=== PATIENT | female | born 1950 | race Caucasian/White ===

== ENCOUNTER 2018-04-26 19:04 | Outpatient (REF) | payer MEDICARE, SELFPAY | END 2018-04-26 19:24 | LOC: LBN 19:04 | PROVIDERS: PCP Nurse Practitioner; Visit Provider Nurse Practitioner Adult Health | DX: J02.9 Acute pharyngitis, unspecified (principal) | CPT/HCPCS: 87449; 87070 ==

== ENCOUNTER 2018-08-05 14:54 | Outpatient (CLI) | payer MEDICARE, BC, SELFPAY ==
--- NOTE | 2018-08-05 14:45 | DI.RAD_ITS ---
SYMPTOMS/DIAGNOSIS: LEFT KNEE PAIN LEG LENGTH EXAMINATION AND LEFT KNEE EXAMINATION: There is a right total knee replacement, which appears in good position. In the left knee, there is moderately severe narrowing at the medial femorotibial joint space. Periarticular spurring is seen involving all three joint compartments. Small enthesophyte is seen at the superior patella. The right lower extremity measures 86.6 cm, the left lower extremity measures 86 cm. IMPRESSION: 1. Osteoarthritis of the left knee. 2. Right TKR.
== END 2018-08-05 15:14 ==
PROVIDERS: PCP Nurse Practitioner; Referring Provider Nurse Practitioner; Visit Provider Student in an Organized Health Care Education/Training Program
DX: M25.562 Pain in left knee (principal); M17.12 Unilateral primary osteoarthritis, left knee; Z96.651 Presence of right artificial knee joint; I10 Essential (primary) hypertension; E11.9 Type 2 diabetes mellitus without complications
CPT/HCPCS: 99204; 99213; 73560; 77073

== ENCOUNTER 2018-10-08 07:49 | Outpatient (CLI) | payer MEDICARE, BC, SELFPAY ==
[2018-10-08 08:34] LABS: HCT 41.3 % (36.0-46.0); HGB 13.8 g/dL (12.0-15.5); Mean Corp. HGB Concentration 33.4 g/dL (32.0-36.0); Mean Corpuscular Hemoglobin 29.9 pg (27.0-33.0); Mean Corpuscular Volume 89.6 fL (80-95); Mean Platelet Volume 9.3 fL (8.0-11.0); Platelet Count 249 x1000/uL (130-400); RBC 4.61 m/cumm (4.00-5.20); RBC Distribution Width 13.2 % (11.7-14.6); White Blood Cell Count 5.48 k/cumm (4.4-10.8)
[2018-10-08 09:16] LABS: COMMENT (LAB VIEW ONLY) 214.99 mg/dL
[2018-10-08 09:27] LABS: ALT 18 U/L (12-78); AST 14 U/L (15-37); Albumin 3.6 g/dL (3.4-5.0); Alkaline Phosphatase 99 U/L (46-116); Anion Gap 9.9 mmol/L (3-11); BUN 22 mg/dL (7-18); Bilirubin, Total 0.4 mg/dL (0.2-1.0); CO2 27.1 mmol/L (21.0-32.0); Calcium 8.8 mg/dL (8.5-10.1); Calculated LDL 96; Chloride 103 mmol/L (98-107); Cholesterol 169 mg/dL (50-200); Glucose 211 mg/dL (70-100); HDL Cholesterol 49 mg/dL (40-60); Potassium 4.2 mmol/L (3.5-5.1); Sodium 140 mmol/L (136-145); Total Protein 6.2 g/dL (6.4-8.2); Triglyceride 123 mg/dL (30-150)
== END 2018-10-08 08:09 ==
PROVIDERS: PCP Nurse Practitioner; Visit Provider Nurse Practitioner
DX: E11.9 Type 2 diabetes mellitus without complications (principal); E78.5 Hyperlipidemia, unspecified; I10 Essential (primary) hypertension
CPT/HCPCS: 36415; 80053; 80061; 83721; 85027; 82043; 82570

== ENCOUNTER → 2019-04-10 08:51 | Outpatient (BNVA) | payer MEDICARE, BC, SELFPAY | PROVIDERS: PCP Nurse Practitioner; Referring Provider Nurse Practitioner; Visit Provider Surgery | DX: R13.10 Dysphagia, unspecified (principal); I10 Essential (primary) hypertension; E11.9 Type 2 diabetes mellitus without complications; Z79.84 Long term (current) use of oral hypoglycemic drugs | CPT/HCPCS: 99204; 99214 ==

== ENCOUNTER 2019-04-11 09:51 | Day surgery (SDC) | payer MEDICARE, BC, SELFPAY ==
[2019-04-11 10:11] VITALS: BP 149/78; PULSE 73; RESP 16; TEMP 36.1; O2SAT 99
[2019-04-11] MEDS: Lactated Ringers 1,000 ML 80 ML IV (10:35)
--- NOTE | 2019-04-11 11:30 | W.PM.DSUDISC ---
Discharge Plan Disposition Patient Disposition: HOME Condition: Good Discharge Details Reason For Visit: DYSPHAGIA Attending Provider: Tamela Molina Primary Care Provider: Ana King Home Meds and New Rx's Prescriptions: Continued Shingrix (PF) 50 mcg/0.5 mL suspension for reconstitution 50 mcg IM ONCE Qty: 1 RF: 1 albuterol sulfate [ProAir HFA] 90 mcg/actuation HFA aerosol inhaler 2 puff Inhalation Q4H PRN Qty: 1 RF: 1 triamcinolone acetonide 0.1 % cream 11 applic Topical BID Qty: 1 RF: 3 omeprazole 20 mg capsule,delayed release(DR/EC) 20 mg PO BID Qty: 30 RF: 0 multivitamin [Daily Multi-Vitamin] 1 EACH tablet 1 ea PO DAILY RF: 0 aspirin 81 MG tablet,delayed release (DR/EC) 1 tab PO DAILY RF: 0 cholecalciferol (vitamin D3) [Vitamin D3] 400 UNIT tablet 1 tab PO DAILY RF: 0 calcium carbonate-vitamin D3 1 EACH tablet 1 ea PO DAILY RF: 0 fluticasone propionate 16 GM spray,suspension 16 gm NS DAILY PRNQty: 1 RF: 11 clotrimazole 45 GM cream 1 applic Topical BID Qty: 45 RF: 0 (DME) blood-glucose meter [Blood Glucose Monitoring] kit See Dose Instructions .ROUTE .MEDSUPPLY Qty: 1 RF: 0 (DME) blood sugar diagnostic strip See Dose Instructions .ROUTE .MEDSUPPLY Qty: 100 RF: 1 enalapril maleate 10 mg tablet 10 mg PO DAILY Qty: 90 RF: 3 metformin 1,000 mg tablet 1,000 mg PO BID Qty: 180 RF: 3 glipizide 5 mg tablet extended release 24hr 5 mg PO DAILY Qty: 90 RF: 3 Discharge Instructions Additional Instructions: Findings: Your EGD did not show inflammation in the esophagus or a significant stricture (narrowing). Biopsies were taken in the esophagus to check for an allergic type condition. Follow up: My office will contact you with biopsy results. A CT scan of the abdomen will be scheduled to evaluate upper abdominal tenderness. Please call if you develop: fevers >101.5 Nausea or Vomiting Abdominal pain that is not transient DAY SURGERY UNIT POST EGD INSTRUCTIONS 1. Because there will be medication in your system for the next 24 hours, you may feel a little sleepy. Your coordination will be affected. Therefore: a. Do not drive or operate dangerous equipment for 24 hours. b. Do not drink alcohol beverages for 24 hours (not even beer). c. Plan to go home and rest for the day. 2. Generally there are no restrictions on your activity after a day or so has gone by, but you may feel a bit fatigued for a few days. 3 After you arrive home you may have a light meal and return to a normal diet as you can tolerate it without feeling sick to your stomach. 4. After surgery, you may feel pain or discomfort. This should be only transient, but if it persists please contact your doctor. 5. If there are any questions regarding the findings of your procedure, please feel free to contact your doctor. 6. If you are unable to contact your doctor with a problem, contact the hospital at [phone]. 7. Continue all your regular medications unless directed otherwise. I understand the above instructions and have no questions. Signature of Patient or Responsible Adult Escort Date/Time Name of Responsible Adult Escort Signature of Nurse Date/Time Activity:: Activity as Tolerated Diet:: As Tolerated Discharge Orders Discharge Orders: Discharge Order (Routine); Ordered 04/11/19 Ordered By: Tamela Molina DS: Diagnosis Discharge Diagnosis (1) Dysphagia: Status: Acute
--- NOTE | 2019-04-11 12:08 | ESO_PTH ---
PATIENT: Jennie Castellanos LOC: [facility] U#:[id number] AGE/SX: 68/F ROOM: RE04/11/[address]: Tamela Molina MD : [id number] BED: DIS: 04/11/2019 SPEC #: [id number] RECD: 04/11/19 12:45 STATUS: MERCED REHolli #: [id number] LINDA: 04/11/19 12:[address]: Tamela Molina DEPT: Surgical Specimen RECD BY: Shivani Vang ENTERED: 04/11/19 12:46 SP TYPE: Eso MARYSE DR: Ana King APRN Tissues: 1 - ESOPHAGUS BIOPSY 2 - ESOPHAGUS BIOPSY 3 - ESOPHAGUS BIOPSY Procedures: GROSS AND MICRO LEVEL 4 Comments: [id number]
[2019-04-11 12:54] VITALS: BP 140/79; PULSE 74; RESP 16; TEMP 36.7; O2SAT 98
--- NOTE | 2019-04-17 11:13 | ENDO_ITS ---
REPORT OF OPERATIVE PROCEDURE DATE OF SURGERY April 11, 2019 PREOPERATIVE DIAGNOSIS Dysphagia. POSTOPERATIVE DIAGNOSIS Normal EGD. PROCEDURE EGD with esophageal biopsies. SURGEON Tamela Molina M.D. ANESTHESIA General. INDICATIONS This is a 68-year-old woman who notes years of difficulty swallowing. Solid food was getting stuck wi th every meal. This was worse with rice. It helped to drink liquids. The food would lodge for about a minute and then pass. Her symptoms have significantly improved after recently starting a PPI. She al so reports early satiety. PROCEDURE DESCRIPTION She was placed in the left lateral decubitus position. Propofol was titrated to sedation. The scope w as advanced into her esophagus under direct visualization and down into the stomach and duodenum. The re was no duodenitis or ulcers noted. The stomach itself appeared normal, including retroflexed view of the fundus and lesser curvature. The GE junction was carefully inspected and showed no significant stricture, masses, Florez's or inflammation. I therefore did not proceed with any dilation. Because of her long-term symptoms, random biopsies were taken from the proximal, mid and distal esophagus to evaluate for eosinophilic esophagitis. She tolerated the procedure well and was stable to Recovery. Because of her abdominal tenderness on preoperative examination and early satiety, I ordered a CT sca n of the abdomen and pelvis, which is pending. CC: Ana King NP
== END 2019-04-11 13:32 | disposition home or self-care (01) ==
PROVIDERS: PCP Nurse Practitioner; Visit Provider Surgery
PROC: 0DJ68ZZ Inspection of Stomach, Via Natural or Artificial Opening Endoscopic (ICD-10-PCS; CPT 43235; principal; 2019-04-11 11:30)
DX: R13.10 Dysphagia, unspecified (principal); K21.0 Gastro-esophageal reflux disease with esophagitis; E11.9 Type 2 diabetes mellitus without complications; Z79.84 Long term (current) use of oral hypoglycemic drugs; I10 Essential (primary) hypertension
CPT/HCPCS: 43239; 88305

== ENCOUNTER 2019-05-09 03:34 | Outpatient (CLI) | payer MEDICARE, BC, SELFPAY ==
[2019-05-09] MEDS: Breeza Beverage 473 ML BTL PO ×2 (07:20→07:21)
[2019-05-09] MEDS: Omnipaque 350 MG/ML 50 ML BTL PO (07:21)
[2019-05-09 08:02] LABS: ALT 14 U/L (14-59); AST 13 U/L (15-37); Alkaline Phosphatase 85 U/L (46-116); Anion Gap 8.7 mmol/L (3-11); BUN 18 mg/dL (7-18); Bilirubin, Total 0.4 mg/dL (0.2-1.0); CO2 28.3 mmol/L (21.0-32.0); CREATININE 0.65 mg/dL (0.55-1.02); Calcium 8.8 mg/dL (8.5-10.1); Chloride 105 mmol/L (98-107); Glucose 206 mg/dL (74-106); Hemoglobin A1C 7.6 % (3.8-5.6); Potassium 3.5 mmol/L (3.5-5.1); Sodium 142 mmol/L (136-145)
[2019-05-09 08:16] LABS: Calculated LDL 70 mg/dL; Cholesterol 137 mg/dL (<200); HDL Cholesterol 39 mg/dL (40-60); Triglyceride 143 mg/dL (<150)
--- NOTE | 2019-05-09 09:05 | DI.CT_ITS ---
EXAM: CT ABDOMEN PELVIS WO CLINICAL HISTORY: Epigastric pain,R10.13 TECHNIQUE: CT examination of the abdomen and pelvis was performed with oral contrast only due to pat zev's history of previous severe contrast allergy. COMPARISON: No exams were available for comparison FINDINGS: Note is made of a prior cholecystectomy. No biliary dilatation. Pancreas is unremarkable in appea guillermo by noncontrast criteria. Adrenals appear intact. Right kidney is normal in appearance except for question of a tiny nonobstructing lower pole renal stone. No hydronephrosis or mass on the right . There is a question of thickening of the wall of the gastric fundus, this may be due to underdistent ion but the possibility of gastritis or neoplastic lesion not excluded. Question wall thickening of the antrum as well. Endoscopic correlation should be considered. There are low-attenuation, rounded lesions of left kidney consistent with cysts. There are a couple of calcifications, the largest measuring about 8 millimeters in diameter, these are nonobstructing. No ureteral lithiasis seen. Urinary bladder nearly empty. No significant abdominal wall hernia seen. No significant abdominal or pelvic adenopathy. Appendix is normal. No focal bowel pathology identified. Uterus is mildly enlarged with lobulated contour suggesting fibroids. [employer] structures otherwise unrem arkable for age. No free fluid in the pelvis. IMPRESSION: Nonobstructing renal calculi. Possible fundal wall thickening of the stomach, endoscopic correlation may be obtained if clinically appropriate.
== END 2019-05-09 03:54 ==
PROVIDERS: PCP Nurse Practitioner; Visit Provider Surgery
DX: R10.13 Epigastric pain (principal); E11.9 Type 2 diabetes mellitus without complications; I10 Essential (primary) hypertension; N20.0 Calculus of kidney; Z90.49 Acquired absence of other specified parts of digestive tract; K31.89 Other diseases of stomach and duodenum
CPT/HCPCS: 80053; 80061; 74176; 82565; 83036; Q9967

== ENCOUNTER 2019-05-14 13:57 | Outpatient (CLI) | payer MEDICARE, BC, SELFPAY ==
--- NOTE | 2019-05-14 13:10 | W.PREOPHP ---
Date of service: 05/14/19 Assessment and Plan Assessment and plan (1) Primary osteoarthritis of left knee: Status: Chronic Assessment and plan: Left total knee replacement. Details of surgery were discussed with patient as well as risks and pertinent anatomy. All questions were answered. History of Present Illness History of Present Illness Chief Complaint: Left knee pain Narrative: Jennie is a 68-year-old female who comes in today for a preop history and physical for a left total knee replacement. She has been dealing with left knee pain for many years, but it has gotten worse over the last few months. She has pain with weightbearing, and the longer she weight bears the more pain she gets. She states that most of her pain is at the end of the day. She is most concerned with an instability feeling that she gets when she has a misstep with her left foot. Once in a while she gets a pain that makes her knee whenever possible. This is exactly what used to happen in her right knee before she had a right total knee replacement. At the time of the visit in orthopedics, she was not interested in injection therapy and would like to just move forward with a knee replacement as she did so well from the first one. X-rays taken in the office confirmed joint space narrowing in all 3 compartments with bone spurring throughout, suggesting severe arthritis. Her alignment is actually relatively good. She has been modifying her activities and doing exercises which have not given her adequate pain relief. Dr. Pryor at this point does offer a left total knee replacement. Pertinent Surgical Information Jennie has a history of diabetes, and it seems that her blood sugars have gotten a little more out of control. Her last A1c was on 05/09/2019 and it was 7.6. She also states that she has had some readings in the 200s for the first time in a long time. She was instructed to keep a chart of her blood sugars over the next week until the day of her surgery, and at that time her log will be looked at to make sure that there does not seem to be any reason to postpone her surgery. Patient denies history of hypertension, CVA, [place], angina, asthma, COPD, renal or liver disorders, hepatitis, bleeding disorders, diabetes, immune or thyroid disorders. No complications from anesthesia. Review of Systems Constitutional Constitutional: Denies fever(s) ENT Ears, Nose, Mouth, and Throat: Denies dizziness and Denies sore throat Cardiovascular Cardiovascular: Denies chest pain, Denies palpitations and Denies dyspnea Respiratory Respiratory: Denies cough and Denies dyspnea Gastrointestinal Gastrointestinal: Denies abdominal pain, Denies melena, Denies hematochezia, Denies diarrhea, Denies nausea and Denies vomiting Genitourinary Genitourinary: Denies hematuria and Denies dysuria Neurologic Neurologic: Denies dizziness Endocrine Endocrine: Denies palpitations [facility] Medical History (Updated 05/14/19 @ 13:15 by NIGHAT Rdz) Chronic rhinitis DM type 2 (diabetes mellitus, type 2) Eczema Essential hypertension History of diverticulosis (Acute) Hyperlipemia Low back pain Spinal stenosis of lumbosacral region Surgical History (Updated 05/14/19 @ 13:15 by NIGHAT Rdz) Cholecystectomy 1980s H/O esophagogastroduodenoscopy (Chronic ~03/2019) History of lung biopsy (Acute) Hx of colonoscopy (Chronic) Status post total knee replacement (Inactive 07/05/07) Dr. Tovar Tubal Ligation, 1978 Social History Smoking/Tobacco Use Status: Never Alcohol Intake: current Alcohol Intake frequency: holidays/special occasions only Alcohol type: wine and hard liquor Drug use: Never Substance use type: does not use Details: alcohol: t-7 Current gender identity: female Do you feel safe at home: Yes Do you feel safe in your relationship?: Yes Meds Home Medications and Allergies Home Medications Medication Instructions Recorded Confirmed Type aspirin 1 tab PO DAILY tab 07/29/12 05/14/19 History cholecalciferol (vitamin D3) 1 tab PO DAILY 07/29/12 05/14/19 History [Vitamin D3] multivitamin [Daily Multi-Vitamin] 1 ea PO DAILY 07/29/12 05/14/19 History calcium carbonate-vitamin D3 1 ea PO DAILY 01/23/13 05/14/19 History clotrimazole 1 applic TOPICAL BID #45 gm 10/01/17 05/14/19 Rx varicella-zoster [id number] (PF) 50 50 mcg IM ONCE #1 each 04/01/18 05/14/19 Rx mcg/0.5 mL IM susp, kit blood-glucose meter #1 each 04/10/18 05/14/19 Rx albuterol sulfate 90 mcg/actuation 2 puff INHALATION Q4H PRN #1 04/26/18 05/14/19 Rx aerosol inhaler inhaler blood sugar diagnostic #100 each 07/29/18 05/14/19 Rx enalapril maleate 10 mg tablet 10 mg PO DAILY #90 tab-cap 09/16/18 05/14/19 Rx metformin 1,000 mg tablet 1,000 mg PO BID #180 tab 09/16/18 05/14/19 Rx glipizide 5 mg tablet, extended 5 mg PO DAILY #90 tab 10/09/18 05/14/19 Rx release 24 hr triamcinolone acetonide 0.1 % 11 applic TOPICAL BID #1 script 03/31/19 05/14/19 Rx topical cream omeprazole 20 mg capsule,delayed 20 mg PO DAILY #90 cap 04/28/19 05/14/19 Rx release fluticasone propionate 50 2 spray NS DAILY #18.2 ml 05/07/19 05/14/19 Rx mcg/actuation nasal spray,suspension Allergies Allergy/AdvReac Type Severity Reaction Status Date / Time terbinafine HCl Allergy Intermediate Hives Verified 05/14/19 13:07 [From Lamisil] IV dye Allergy Severe spasm/tremo Uncoded 05/14/19 13:07 rs Exam [facility] Head: normocephalic and atraumatic General nose exam: no nasal discharge Throat: uvula midline and no uvular edema Other: soft palate rises symmetrically, no erythema Eyes Conjunctivae: conjunctivae normal Sclera: sclerae normal Pupils: PERRL Resp Effort & Inspection: normal respiratory effort Auscultation: clear to auscultation bilaterally and no wheezes Cardio Rate: regular rate Rhythm: regular rhythm Heart Sounds: S1 normal, S2 normal and no murmurs GI Palpation: soft, no hepatosplenomegaly and nontender Auscultation: normal bowel sounds
[2019-05-14 16:05] LABS: HCT 40.1 % (36.0-46.0); HGB 13.1 g/dL (12.0-15.5); Mean Corp. HGB Concentration 32.7 g/dL (32.0-36.0); Mean Corpuscular Hemoglobin 29.4 pg (27.0-33.0); Mean Corpuscular Volume 89.9 fL (80-95); Mean Platelet Volume 8.9 fL (8.0-11.0); Platelet Count 389 x1000/uL (130-400); RBC 4.46 m/cumm (4.00-5.20); RBC Distribution Width 13.2 % (11.7-14.6); White Blood Cell Count 10.41 k/cumm (4.4-10.8)
[2019-05-14 16:19] LABS: Hemoglobin A1C 7.6 % (3.8-5.6)
[2019-05-14 16:24] LABS: BUN 16 mg/dL (7-18); CREATININE 0.76 mg/dL (0.55-1.02); Calcium 9.7 mg/dL (8.5-10.1); Chloride 103 mmol/L (98-107); Glucose 109 mg/dL (74-106); Potassium 4.6 mmol/L (3.5-5.1); Sodium 140 mmol/L (136-145)
== END 2019-05-14 14:17 ==
PROVIDERS: PCP Nurse Practitioner; Visit Provider Student in an Organized Health Care Education/Training Program
DX: M25.562 Pain in left knee (principal); M17.12 Unilateral primary osteoarthritis, left knee; I10 Essential (primary) hypertension; E11.9 Type 2 diabetes mellitus without complications; E78.5 Hyperlipidemia, unspecified; Z01.818 Encounter for other preprocedural examination; Z01.812 Encounter for preprocedural laboratory examination
CPT/HCPCS: 36415; 80048; 85027; NC; 83036

== ENCOUNTER → 2019-05-21 07:55 | Outpatient (BNVA) | payer MEDICARE, BC, SELFPAY | PROVIDERS: PCP Nurse Practitioner; Referring Provider Nurse Practitioner; Visit Provider Student in an Organized Health Care Education/Training Program | DX: R69 Illness, unspecified (principal) ==

== ENCOUNTER 2019-05-21 08:52 | Inpatient (IN) | payer MEDICARE, BC, SELFPAY ==
[2019-05-14 14:31] VITALS: BP 128/76; PULSE 75; RESP 16; TEMP 37; O2SAT 98
--- NOTE | 2019-05-14 15:01 | NUR.NOTE ---
05/14: Per NIGHAT Rdz, advised pt. to keep a daily log of her blood sugars for the week leading up to the surgery and for pt. to bring log with her DOS for Dr. Pryor. Nursing Note:
[2019-05-21] VITALS (11 sets, daily range): BP systolic 118–145; BP diastolic 62–77; PULSE 58–91; RESP 15–21; TEMP 36.3–36.7; O2SAT 72–99
[2019-05-21] MEDS: Celecoxib 200 MG CAP 400 MG PO (09:29)
[2019-05-21] MEDS: Gabapentin 300 MG CAP PO ×2 (09:29→21:34)
[2019-05-21] MEDS: Acetaminophen 500 MG TAB 1000 MG PO ×3 (09:30→20:02)
[2019-05-21] MEDS: Lactated Ringers 1,000 ML 80 ML IV ×2 (09:54→12:27)
[2019-05-21] MEDS: Bupivacaine 0.5% Pres-Free 30 ML VIAL (11:59)
[2019-05-21] MEDS: ceFAZolin 2 GM/50 ML BAG IVPB (13:20)
[2019-05-21] MEDS: Normal Saline 20 ML VIAL (14:25)
[2019-05-21] MEDS: Ketorolac 30 MG/ML VIAL (14:25)
[2019-05-21] MEDS: Bupivacaine 0.25% Pres-Free 30 ML VIAL (14:25)
[2019-05-21] MEDS: oxyCODONE 5 MG TAB PO ×2 (15:50→18:08)
--- NOTE | 2019-05-21 17:06 | PT.INNT ---
Date of service: 05/21/19 Time of Service: 16:59 PT Notes Visit Reasons: (L) KNEE DJD Patient seen for PT evaluation, nurse Sarah present in room who states that patient just came up to med surg unit 10 minutes ago and is not able to feel her L LE and is only partially able to feel her right LE. Patient confirms said statement. Nurse is also currently helping patient settle in. Both patient and nurse are agreeable to holding off with PT evaluation until tomorrow. Will plan to see patient before breakfast tomorrow morning. Thank you very much for this referral. Adriana Najera PT, DPT, CLT [facility]
[2019-05-21] MEDS: metFORMIN 500 MG TAB 1000 MG PO (17:39)
[2019-05-21] MEDS: ceFAZolin 1 GM/50 ML BAG IVPB ×2 (17:40→23:52)
[2019-05-21] MEDS: Insulin Aspart 300 UNITS/3 ML PEN SC (17:40)
[2019-05-21] MEDS: HYDROmorphone 2 MG/ML VIAL 0.5 MG IVP (18:09)
[2019-05-21] MEDS: Normal Saline Flush 10 ML SYR IV (18:10)
[2019-05-21] MEDS: Celecoxib 200 MG CAP PO (20:01)
[2019-05-21] MEDS: Aspirin E.C. 81 MG TABEC PO (20:01)
--- NOTE | 2019-05-21 20:43 | ROE_ITS ---
Date of service: 05/21/19 Time of Service: 14:43 Operative Note Operative Note DATE OF PROCEDURE: 05/21/19 PRE-OP DIAGNOSIS: Left Knee Osteoarthritis POST-OP DIAGNOSIS: same PROCEDURE: Left Total Knee Replacement SURGEON: Shree Pryor IT TRAINING SPECIALIST: Renae De La Garza ANESTHESIA: regional and spinal ESTIMATED BLOOD LOSS: 150 PATHOLOGY: none sent TOURNIQUET TIME: 39 COMPLICATIONS: None Patient was transported to: PACU Patient's condition: stable Implants: 1. Depuy Attune Posterior Stabilized Femoral Component, Size 5 Narrow 2. Depuy Attune Fixed Platform Tibial Component, Size 4 3. Depuy Attune 5x7mm Fixed, Stabilized Poly 4. Depuy Attune Patellar Component, Size 35mm Indications: I have seen Jennie in clinic for symptoms of left knee arthritis, confirmed with radiographic findings. Jennie has exhausted nonoperative methods and was having significant limitations in daily function and desired better function and less pain. I discussed the technical details of a knee replacement. I explained the risks of the procedure to include, but not limited to, bleeding, infection, pain, stiffness, fracture, damage to nerves and vessels, damage to muscles and tendons, loosening, need for repeat procedure, blood clot and cardiopulmonary demise. Despite these risks, she elected to proceed. Findings: There was significant signs of arthritis throughout the knee. The findings were most notable in the medial compartment. Procedure Description: Blossom was greeted in the preoperative holding area where the correct side was identified and marked. The consent was reviewed with the patient and signed. The history and physical was updated. All questions were answered. Preoperative mediacations were administered: Acetaminophen 1000mg, Celebrex 400mg, and Gabapentin 300mg. An adductor canal block was then administered by the anesthesia team in the PACU. Jennie was taken back to the operating room. A spinal anesthestic was then administered. The patient was placed into the supine position on the operating room table. A nonsterile tourniquet was placed high onto the leg but only used for cementing. Posts were placed for positioning during the procedure. All bony prominences were well padded. Prophylactic antibiotics in the form of Cefazolin were administered. 1g of Tranxemic Acid was given intravenously within 30 minutes of incision. The left leg was then prepped with Chloraprep and draped in a standard fashion with impervious stockinette and extremity drape. A second prep with Chloraprep was performed prior to placing Ioband. A timeout to confirm correct identity, side and site, procedure, allergies, anesthesia, and medical concerns was performed. With the knee in some flexion, a midline incision was made overlying the knee. Full thickness skin flaps were raised once the extensor mechanism was encountered. These were raised medially and laterally. Any bleeding was controlled with electrocautery. Once the extensor mechanism was fully exposed, a medial parapatellar arthrotomy was performed in a flexed position. All bleeding from the arthrotomy and the geniculate arteries was coagulated. A medial subperiosteal peel was performed with electrocautery to the midcoronal plane. The fat pad was removed while keeping the patellar tendon protected. The anterior distal femur synovium was removed for later visualization. The ACL and PCL were resected and the anterior horn of the lateral meniscus was transected. The knee was then flexed with the patella everted. Large osteophytes from the tibia were removed. Large osteophytes from the femur were removed. Using a step drill, and based on preoperative templating, the femoral canal was entered. This was done with a step drill without any difficulty. The intramedullary distal femoral cut guide was inserted, set to a 5 degree valgus cut and 9mm cut thickness. The distal femoral cut guide was then held in position and pinned. With the soft tissues protected, the distal cut was performed. This was passed over a few times to ensure a planar cut. I then turned attention to the tibia. The extramedullary guide was placed onto the leg. The distal aspect was slid medial to adjust for position of center of ankle and stay in line with shaft of the tibia. Approximately 3-5 degrees of posterior slope was kept in the proximal cutting guide. The center of the guide was aligned with the PCL. The stylus was used to assess cut thickness. The medial side, most involved side, was set for a 4mm cut. This was then held in position and pinned into place with 2 additional pins and a cross pin for stability. The medial and lateral collateral ligaments were protected and the cut was performed. With this completed, it was assessed and noted to be of appropriate dimensions. The guide was removed. A spacer block was inserted and the knee was brought into extension. The 6mm spacer block provided full extension, without hyperextension and with stability of both the medial and lateral collateral ligaments was assessed. The pins from the femur and the tibia were then removed. The distal femur was then sized. The anterior stylus was placed onto the lateral ridge of the anterior femur. This indicated a size 5 narrow femur. The external rotation of the guide was adjusted to 3 degrees to match the epicondylar axis, perpendicular to Radha?s line. The 4-in-1 cutting guide was the placed. The posterior medial femur cut was evaluated and appeared of good thickness. The spacer block was inserted underneath the cutting guide and stability was confirmed in 90 degrees of flexion. An carine wing was used to confirm appropriate position of the anterior cut to avoid notching. This cutting guide was ensured to be flush on the cut surface and then pinned into place with headed pins. While protecting the soft tissues, quad tendon, and collateral ligaments, the anterior and posterior cuts were performed with a saw. The central two pins were removed and the posterior and anterior chamfers were cut next. The notch-cutting guide was placed. This was pinned to lateralize the femoral component as much as possible while keeping it flush on the cut surface. This was then pinned into position. A reciprocating saw was used to make the notch cut. A rasp smoothed the cut surfaces. A trial posterior stabilized femoral component was then inserted, impacted down to the cut surfaces, and the lug holes were drilled. A provisional trial tibial component was placed and the knee was brought through range of motion. The polyethylene was trialed until there was good flexion and extension with excellent stability to the medial and lateral collaterals. The patella was tracking without thumbs. The tibial cut surface was fully exposed. The medial and lateral menisci were removed. The tibia was then sized as a 4. The tibia had been previously marked during trialing to correspond to the center of the tibial component to help with rotation. The trial was aligned to this nomi, approximately rotated to the medial 1/3rd of the tibial tubercle. The trial was pinned into place. The tibia was prepared with a reamer and a keel punch. The knee was then brought into extension and the patella was measured as 25mm. Using the patellar clamp and cut guide, this was resected to a flat surface with at least 13mm of thickness remaining. The size 35 patella fit the best. This was oriented and then clamped into position. The lugs were drilled. The trial components were removed. The final components, except for the polyethylene were opened on the back table. The periosteal and capsular tissues, especially posteriorly, around the knee were then systematically injected with a periarticular cocktail consisting of 50cc 0.25% Marcaine, 30mg Ketorolac, 20cc of Exparal and 50cc of injectable saline. The tourniquet was then inflated to 275mmHg. The knee was thoroughly irrigated with a pulse lavage and dried. On the back table, with the implants opened, the cement was mixed. 2 batches of antibiotic laden cement were prepared with vacuum assistance. After the cement was ready it was placed on to the back side of the tibial component. A small amount was placed onto the posterior flange of the femur. Cement was manual pressurized and impregnated into the cut surface of the tibia. The tibial component was then inserted into the cut surface and impacted into position. Excess cement was removed and the component was reimpacted. Again, excess cement was removed and our attention was then turned to the femur. The femoral cut surface was once again dried and cement was manually impacted into the cut surface. The femoral component was lined with the lug holes and impacted. Excess cement was removed. It was ensured to be down against the cut surface. The trial polyethylene was then inserted and the leg was brought out into full extension for the duration of the cement curing process, approximately 15min. Cement was lastly manually impacted into the cut surface of the patella and the patellar button was clamped into position and held. During this process attention was turned to the gutters of the knee and for all interfaces for any excess cement. While the cement was hardening, the knee was irrigated with Irrisept chlorhexadine solution. It was allowed to sit in the knee for 3 minutes. After the cement had finally cured, approximately 15min, the clamp was removed from the patella and the knee was taken through range of motion. A size 7mm polyethylene component provided the best range of motion and stability with less than 2mm gapping with medial and lateral stress and full extension without significant hyperextension. The patella was tracking with a no-thumbs technique. The trial poly was removed and once again the knee was checked for any loose, excess, or errant cement. The poly component was then inserted and impacted into position after cleaning and drying the tibial tray. The capsule was then reapproximated with a No. 1 Vicryl at multiple locations. The capsule was finally closed with a No. 2 Stratafix, barbed suture. The tourniquet was then released and the arthrotomy appeared watertight without significant bleeding. The second dosing of 1g TXA was started. Deep tissues were then reapproximated with 0 Vicryl and 2-0 Vicryl. The skin was closed with a running 3-0 Monocryl in a subcuticular fashion. This was reinforced with skin glue. A Mepilex silver dressing was applied along with a elxc-sn-lockc ROMEL wrap. A CryoCuff was applied. Jennie was transferred to the hospital bed without difficulty an suffering no apparent complication. Jennie has a good prognosis. Physical therapy will start today and without restrictions, weight-bearing as tolerated. Aspirin 81mg BID will be used for DVT prophylaxis.
[2019-05-22] VITALS: BP 113/61; PULSE 67; RESP 17; TEMP 36.6; O2SAT 98
[2019-05-22] MEDS: Lactated Ringers 1,000 ML 80 ML IV (03:51)
[2019-05-22] MEDS: oxyCODONE 5 MG TAB PO ×2 (04:03→14:27)
[2019-05-22 04:15] VITALS: BP 131/63; PULSE 82; RESP 16; TEMP 36.4; O2SAT 98
[2019-05-22 07:24] VITALS: BP 141/72; PULSE 59; RESP 18; TEMP 36.8; O2SAT 98
[2019-05-22] MEDS: Acetaminophen 500 MG TAB 1000 MG PO ×2 (08:07→14:06)
[2019-05-22] MEDS: Multivitamin TAB 1 TAB PO (08:07)
[2019-05-22] MEDS: Celecoxib 200 MG CAP PO (08:07)
[2019-05-22] MEDS: Aspirin E.C. 81 MG TABEC PO (08:08)
[2019-05-22] MEDS: Omeprazole 20 MG CAPCR PO (08:08)
[2019-05-22] MEDS: Enalapril 5 MG TAB 10 MG PO (08:08)
[2019-05-22] MEDS: glipiZIDE C.R. 5 MG TABCR PO (08:08)
[2019-05-22] MEDS: metFORMIN 500 MG TAB 1000 MG PO (08:08)
[2019-05-22] MEDS: ceFAZolin 1 GM/50 ML BAG IVPB (08:09)
[2019-05-22] MEDS: Calcium 600mg/Vit D 200U TAB 1 TAB PO (08:09)
[2019-05-22] MEDS: Normal Saline Flush 10 ML SYR IV (08:09)
[2019-05-22] MEDS: Cholecalciferol (Vitamin D3) 400 UNIT TAB PO (08:09)
[2019-05-22] MEDS: Fluticasone NASAL SPRAY 16 GM BTL NS (08:59)
--- NOTE | 2019-05-22 10:14 | PT.INIE ---
Date of service: 05/22/19 Time of Service: 07:59 PT Notes Visit Reasons: (L) KNEE DJD Physical Therapy Inpatient Initial Evaluation Date: 05/22/2019 Referring Doctor: Shree Pryor M.D. PT Orders: PT CONSULT: s/p ortho surgery Precautions: Fall. Standard. Activity as tolerated. Patient Profile/Admitting Diagnosis: Pt is a 68-year-old female presenting status post left total knee arthroplasty on post-operative day 0. PMHX: Medical History (Updated 05/14/19 @ 13:15 by NIGHAT Rdz) Chronic rhinitis DM type 2 (diabetes mellitus, type 2) Eczema Essential hypertension History of diverticulosis (Acute) Hyperlipemia Low back pain Spinal stenosis of lumbosacral region Surgical History (Updated 05/14/19 @ 13:15 by NIGHAT Rdz) Cholecystectomy 1980s H/O esophagogastroduodenoscopy (Chronic ~03/2019) History of lung biopsy (Acute) Hx of colonoscopy (Chronic) Status post total knee replacement (Inactive 07/05/07) Dr. Tovar Tubal Ligation, 1978 Social History/Home Situation: Pt lives alone in a home with stairs to enter, but has a stair lift from when she took care of her mother. Notes that to enter her boyfriends house there are two stairs to a platform and two more stairs that she must be able to negotiate. Pt also often takes care of her grandchildren. Equipment Owned/DME: stair lift, walker Subjective: Pt reports that she can feel both of her legs today. Denies pain when lying in bed, however, after ambulating and stairs she notes a 1/10 pain. Objective: General Observation: IV line in LUE. mepilex dressing over incision Mental Status: alert and oriented x4 Pain: 0/10 pain at rest ROM: Right Upper Extremity: Shoulder Flexion WFL. Shoulder abduction WFL. Elbow flexion WFL. Wrist flexion WFL. Opening and closing of hand WFL. Left Upper Extremity: Shoulder Flexion WFL. Shoulder abduction WFL. Elbow flexion WFL. Wrist flexion WFL. Opening and closing of hand WFL. Right Lower Extremity: Hip flexion WFL. Hip abduction WFL. Knee flexion 94 degrees (R TKA 11 years ago). Ankle dorsiflexion WFL. Ankle plantarflexion WFL. Left Lower Extremity: Hip flexion WFL. Hip abduction WFL. Knee flexion 117 degrees. Knee extension -10 degrees. Ankle dorsiflexion WFL. Ankle plantarflexion WFL. Strength: Right Upper Extremity: Shoulder flexors 5/5. Shoulder abductors 5/5. Elbow flexors 5/5. Elbow extensors 5/5. Electric Meter Technician strong. Left Upper Extremity: Shoulder flexors 5/5. Shoulder abductors 5/5. Elbow flexors 5/5. Elbow extensors 5/5. Electric Meter Technician strong. Right Lower Extremity: Hip flexors 5/5. Hip abductors 5/5. Knee flexors 3-/5. Knee extensors 3-/5. Ankle dorsiflexors 5/5. Ankle plantarflexors 5/5. Left Lower Extremity: Hip flexors 4/5. Hip abductors 5/5. Knee flexors 3-/5. Knee extensors 3-/5. Ankle dorsiflexors 5/5. Ankle plantarflexors 5/5. Sensation: Intact as to pain and pressure on bilateral lower extremities. Bed Mobility/Transfers: Rolling independent Supine to sit independent Sit to supine independent Sit to stand independent Stand to sit independent Bed to chair independent Chair to bed independent Gait: Pt was able to ambulate 25 feet + 150 feet + 25 feet WBAT on the LLE using a front-wheeled walker. Step through gait pattern. Supervision provided by PT student with wheelchair follow by PT. She complained of aching pains in the knee after about 100 feet of ambulation. Stairs: Pt was able to ascend and descend 4? steps x 3 and 6? steps x 2 with bilateral UE support on railings. Supervision provided by PT and PT student. Balance: Static Sitting: Normal Dynamic Sitting: Normal Static Standing: Good Dynamic Standing: Fair Special Tests: Mobility Limitations Standardized Measure [facility] AM-PAC 6 clicks Basic Mobility Inpatient Short Form: Raw Score: 24 CMS Score: 0% deficit Informed Consent/Education: Patient instructed in purpose of PT consult and plan of care. Assessment: Pt is a 68-year-old female presenting status post left total knee arthroplasty on post-operative day 0. On initial evaluation the pt presents with impairment level findings and functional limitations as listed below. Patient presents with clinical signs and symptoms consistent with current/admitting diagnoses that have resulted to mobility limitations, gait instability, and generalized weakness as demonstrated by the following impairment level findings: 1. Decreased strength to L LE hip and knee muscle groups 2. Impaired standing balance 3. Impaired activity tolerance 4. Limitation of joint range of motion in L knee Impairments are contributing to the following functional limitations: 1. Inability to safely ambulate without assistive device and physical assistance 2. Increase completion time for mobility ADL performance 3. Increased fall risk 4. Inability to negotiate steps alone safely Patient is assessed as a 14360 moderate complexity based on the following: History: Pt is a 68-year-old female presenting status post left total knee arthroplasty on post-operative day 0. Presents with impairment level findings and functional limitations. Examination: Demonstrable impairment in strength, balance, and range of motion with underlying impairments and functional limitations as documented above Presentation: Evolving Decision Makin moderate complexity Goals: N/A. PT evaluation only. DISCHARGE RECOMMENDATIONS: Following assessment, the pt appears to be safe to return home once medically cleared. No equipment needs at this time. TREATMENT CODE/TIME: 81857 x 33 minutes beginning at 7:59 A.M. Thank you very much for this referral. Jesse Macedo, JUAN Doctor of Physical Therapy Student [facility] Supervision provided by Adriana Najera PT, DPT, CLT [facility] [place], [place]
[2019-05-22 11:09] VITALS: BP 137/70; PULSE 65; RESP 17; TEMP 36.6; O2SAT 98
--- NOTE | 2019-05-22 12:09 | PHARADMIT ---
Admission Pharmacy Clinical Review (L) Knee DJD Code Status Full Code Current Weight Wgt-64.4 kg Renally Cleared and Narrow Therapeutic Index Meds CrCl~ 54.12 mL/min Meds-OK QTc Value / Action Taken none current BP Control, Fever BP-141/72 Tmax-37C Electrolytes reviewed NA DVT Prophylaxis ASAec Opiate Usage / Scheduled Bowel Regimen Ordered Yes Yes Plt/SCr for Heparin / Enoxaparin SCr-0.76 INR for Warfarin NA H/H stable, WBC/Bands NA Antibiotic appropriateness Ancef Cultures and Sensitivities none Surgical ABX d/c within 24 hr Yes DM control / Insulin Dosing FSBS- Aspart, Glipizide-ER, Metformin Heart Failure (Check EF%) (ROMEL's, B-Block, Diuretics) Vasotec, IV to PO Switch No Home Meds Reviewed Yes Home Meds Not Ordered Lotrimin Crm, TAC crm, Shingrix Comments
[2019-05-22] MEDS: Insulin Aspart 300 UNITS/3 ML PEN SC (12:20)
--- NOTE | 2019-05-22 13:12 | DSE_ITS ---
Date of service: 05/22/19 Time of Service: 13:13 DS: Diagnosis Discharge Diagnosis (1) Primary osteoarthritis of left knee: Status: Chronic Discharge Plan Disposition Patient Disposition: HOME Condition: Good Discharge Details Reason For Visit: (L) KNEE DJD Admit Date/Time: 05/21/19 08:52 Admit Provider: Shree Pryor Attending Provider: Shree Pryor Primary Care Provider: Ana King Hospital Course Hospital Course: Patient was admitted to the medical/surgical floor following the procedure. It was tolerated well without any notable medical, surgical, or anesthetic complications. Mobilization began postoperatively. The meehan catheter was removed and voiding spontaneously. Vitals were stable. Physical therapy worked with the patient and was cleared for discharge home. No acute medical issues. Home Meds and New Rx's Prescriptions: New celecoxib 200 mg capsule 200 mg PO BID PRN (Reason: pain) Qty: 60 RF: 1 aspirin 81 mg tablet,delayed release (DR/EC) 81 mg PO BID Qty: 60 RF: 0 acetaminophen 500 mg tablet 1,000 mg PO Q8H PRN (Reason: pain) Qty: 90 RF: 3 gabapentin 300 mg capsule 300 mg PO QHS Qty: 7 RF: 0 oxycodone 5 mg tablet 5 mg PO Q4H Qty: 18 RF: 0 Continued Shingrix (PF) 50 mcg/0.5 mL suspension for reconstitution 50 mcg IM ONCE Qty: 1 RF: 1 multivitamin [Daily Multi-Vitamin] 1 EACH tablet 1 ea PO DAILY RF: 0 cholecalciferol (vitamin D3) [Vitamin D3] 400 UNIT tablet 1 tab PO DAILY RF: 0 calcium carbonate-vitamin D3 1 EACH tablet 1 ea PO DAILY RF: 0 clotrimazole 45 GM cream 1 applic Topical BID Qty: 45 RF: 0 (DME) blood-glucose meter [Blood Glucose Monitoring] kit See Dose Instructions .ROUTE .MEDSUPPLY Qty: 1 RF: 0 (DME) blood sugar diagnostic strip See Dose Instructions .ROUTE .MEDSUPPLY Qty: 100 RF: 1 enalapril maleate 10 mg tablet 10 mg PO DAILY Qty: 90 RF: 3 metformin 1,000 mg tablet 1,000 mg PO BID Qty: 180 RF: 3 glipizide 5 mg tablet extended release 24hr 5 mg PO DAILY Qty: 90 RF: 3 omeprazole 20 mg capsule,delayed release(DR/EC) 20 mg PO DAILY Qty: 90 RF: 0 fluticasone propionate 50 mcg/actuation spray,suspension 2 spray NS DAILY Qty: 18.2 RF: 6 triamcinolone acetonide 0.1 % cream 1 applic Topical BID RF: 0 Discontinued albuterol sulfate [ProAir HFA] 90 mcg/actuation HFA aerosol inhaler 2 puff Inhalation Q4H PRN Qty: 1 RF: 1 aspirin 81 MG tablet,delayed release (DR/EC) 1 tab PO DAILY RF: 0 Discharge Instructions Additional Instructions: Dr. Pryor?s Total Knee Discharge Instructions Activity: The most important activity is to walk. You should try to take short walks a few times a day. It is important that when resting you work on keeping the knee straight. Avoid putting a pillow behind the knee as this will encourage flexion. Work on range of motion exercises as provided by Physical Therapy. - Start outpatient physical therapy within 2 weeks. - You should wear the BRAULIO hose on both legs for 2 weeks. Dressing: Keep the surgical dressing in place for at least one week. After the first week it may be removed and replace with light gauze and tape or nothing. It may get wet after 3 days but avoid soaking the dressing. If it gets wet, just lightly pat dry. Medications: - You should take Tylenol and anti-inflammatory Celebrex as your primary pain control medications - You have been prescribed a stronger pain medication Oxycodone for breakthrough pain, take as needed as prescribed. - You should continue your stomach acid reduction agent Omeprazole to help reduce stomach acid and reflux. - You will be taking Aspirin 81mg twice a day for DVT prevention unless instructed otherwise. - If you have constipation you should take Colace or Miralax (both [id number]). It takes most people 3-4 days to have a bowel movement. Follow-up: 2 weeks Stand Alone Forms: Nursing Discharge Form Referrals: Edouard Herrera MD [ [facility] STAFF PHYSICIAN] - 05/26/19 1:30 pm Shree Pryor MD [ [facility] STAFF PHYSICIAN] - 06/05/19 10:30 am Activity:: Activity as Tolerated Equipment/Supplies:: Walker Diet:: As Tolerated Discharge Orders Discharge Orders: Discharge Order (Routine); Ordered 05/22/19 Ordered By: Shree Pryor DS: Summary Status at Discharge Functional status at discharge: uses cane/walker Overall status at discharge: patient is progressing back to baseline Mental Status: mental status grossly normal Speech and Movement: speech and movement normal Mood: congruent mood Affect: normal affect Exam Psych Mental Status: mental status grossly normal Speech and Movement: speech and movement normal Mood: congruent mood Affect: normal affect DS: Data Vitals/I&O Vitals and I&O: Vital Signs Temperature 36.6 C 05/22/19 11:09 Temperature Source Tympanic 05/22/19 11:09 Pulse 65 05/22/19 11:09 Pulse Rhythm Regular 05/22/19 08:15 Respiratory Rate 17 05/22/19 11:09 Respiratory Effort Non-Labored 05/22/19 08:15 Respiratory Depth Normal 05/22/19 08:15 Respiratory Pattern Normal 05/22/19 08:15 Blood Pressure 137/70 05/22/19 11:09 Pulse Oximetry 98 05/22/19 11:09 Respiratory End-tidal CO2 34 05/21/19 16:05 Oxygen Delivery Method Room Air 05/22/19 11:09 Oxygen Flow Rate 0 05/22/19 11:09 Pain Level 0 05/22/19 11:09 Intake & Output 05/21/19 05/22/19 05/22/19 23:59 11:59 23:59 Intake Total 1830 / 1830 2562 / 2812 250 / 2812 Output Total 1250 / 1250 1700 / 1700 Balance 580 / 580 862 / 1112 250 / 1112 Weight 64.4 kg Intake: IV 1320 / 1320 1382 / 1382 Oral 510 / 510 1180 / 1430 250 / 1430 Output: Urine 1100 / 1100 1700 / 1700 Estimated Blood Loss 150 / 150 Other: Urine Color Yellow Yellow Urine Appearance Clear Clear Emesis Description None Voiding Methods Toilet [facility] Medical History Chronic rhinitis DM type 2 (diabetes mellitus, type 2) Eczema Essential hypertension History of diverticulosis (Acute) Hyperlipemia Low back pain Sarcoidosis of lung (Acute) Spinal stenosis of lumbosacral region Surgical History Cholecystectomy H/O esophagogastroduodenoscopy (Chronic ~03/2019) History of lung biopsy (Acute) SARCOIDOSIS Hx of colonoscopy (Chronic) Status post total knee replacement (Inactive 07/05/07) Dr. Tovar Tubal Ligation, 1978 Family History Mother No problems noted. Father Diabetes Sister No problems noted. Sister No problems noted. Sister No problems noted. Brother No problems noted. Brother No problems noted. family history Diabetes Personal history of malignant neoplasm maternal aunt-breast Hyperlipidemia Social History Smoking/Tobacco Use Status: Never Alcohol Intake: current Alcohol Intake frequency: holidays/special occasions only Alcohol type: wine and hard liquor Drug use: Never Substance use type: does not use Details: alcohol: last used [place] Current gender identity: female Do you feel safe at home: Yes Do you feel safe in your relationship?: Yes
--- NOTE | 2019-05-22 13:50 | CHAPLAIN ---
Jennie was resting in bed when I visited. She told me about her knee not being painful, but giving out unexpectedly before it was replaced. She has friends visiting with her and expects to be discharged later today.
== END 2019-05-22 14:31 | disposition home or self-care (01) | DRG 470 ==
LOC: PDS 08:59 → MS 05-22 10:07
PROVIDERS: Admitting Provider Student in an Organized Health Care Education/Training Program; PCP Nurse Practitioner; Visit Provider Student in an Organized Health Care Education/Training Program
PROC: 0SRD0J9 Replacement of Left Knee Joint with Synthetic Substitute, Cemented, Open Approach (ICD-10-PCS; CPT 27447; principal; 2019-05-21 11:30)
DX: M17.12 Unilateral primary osteoarthritis, left knee (principal); M25.562 Pain in left knee; Z96.652 Presence of left artificial knee joint; G89.18 Other acute postprocedural pain; E11.9 Type 2 diabetes mellitus without complications; I10 Essential (primary) hypertension; E78.5 Hyperlipidemia, unspecified; Z79.84 Long term (current) use of oral hypoglycemic drugs
CPT/HCPCS: 27447; 76942; 97162; NC; J0690; J1100; J1885; J2250; J2405; J2704; J3490

== ENCOUNTER → 2019-05-26 13:28 | Outpatient (BNVA) | payer MEDICARE, BC, SELFPAY | PROVIDERS: PCP Nurse Practitioner; Referring Provider Nurse Practitioner; Visit Provider Urology | DX: N20.0 Calculus of kidney (principal) | CPT/HCPCS: 99203; 99214 ==

== ENCOUNTER 2019-06-02 14:48 | Outpatient (CLI) | payer MEDICARE, BC, SELFPAY ==
--- NOTE | 2019-06-02 13:48 | DI.RAD_ITS ---
EXAM: XR KNEE LT 1V INDICATION: 1ST POST OP L TKA. COMPARISON: XR knee LT 2V AP,lat from 08/05/2018 TECHNIQUE: 2D digital imaging was performed. FINDINGS: The patient is now status post left total knee replacement. The orthopedic hardware is in good posit ion. There is no evidence of hardware failure. The bones are intact. The patient has an old right total knee replacement. There are degenerative changes noted in the low er lumbar spine. Vascular calcifications are seen in the soft tissues.
== END 2019-06-02 15:08 ==
PROVIDERS: PCP Nurse Practitioner; Referring Provider Nurse Practitioner; Visit Provider Student in an Organized Health Care Education/Training Program
DX: Z96.651 Presence of right artificial knee joint (principal); Z47.1 Aftercare following joint replacement surgery; Z96.652 Presence of left artificial knee joint
CPT/HCPCS: 73560; 77073

== ENCOUNTER → 2019-06-27 09:19 | Outpatient (BNVA) | payer MEDICARE, BC, SELFPAY | PROVIDERS: PCP Nurse Practitioner; Referring Provider Nurse Practitioner; Visit Provider Student in an Organized Health Care Education/Training Program | DX: Z47.1 Aftercare following joint replacement surgery; Z96.652 Presence of left artificial knee joint ==

== ENCOUNTER 2019-10-22 01:44 | Outpatient (CLI) | payer MEDICARE, BC, SELFPAY ==
--- NOTE | 2019-10-22 08:30 | DI.MAMMO_ITS ---
EXAM: MG MAMMO SCREENING CLINICAL HISTORY: screening,Z12.39 TECHNIQUE: Mammograms were interpreted according to the usual protocol including computer analysis w CE[employer] CAD system, tomosynthesis and C-view imaging. COMPARISON: FINDINGS: The breasts are of moderate density with fairly symmetrical distribution of fibroglandular tissue. N o dominant mass or clumped microcalcification is identified in the either breast. The current examin ation is compared with previous examinations including September 2017 and there has been no gross interval change in appearance in comparison with the prior studies. IMPRESSION: No specific evidence of malignancy at this time. Routine screening examinations are suggested at yea rly intervals due to the family history of breast carcinoma. BI-RADS Category 1 - Negative Breast Density - Category B - Scattered areas of fibroglandular density
== END 2019-10-22 02:04 ==
PROVIDERS: PCP Nurse Practitioner; Visit Provider Nurse Practitioner
DX: Z12.31 Encounter for screening mammogram for malignant neoplasm of breast (principal); Z80.3 Family history of malignant neoplasm of breast
CPT/HCPCS: 77063; 77067

== ENCOUNTER 2020-03-24 02:00 | Outpatient (CLI) | payer MEDICARE, BC, SELFPAY ==
[2020-03-27 13:52] LABS: Patient Race White; SARS-CoV-2 RNA Undetected (Undetected); SARS-CoV-2 Specimen Source Nasal
== END 2020-03-24 02:20 ==
PROVIDERS: PCP Nurse Practitioner; Visit Provider Nurse Practitioner
DX: Z11.59 Encounter for screening for other viral diseases (principal)
CPT/HCPCS: U0003

== ENCOUNTER 2020-05-07 02:40 | Outpatient (CLI) | payer MEDICARE, BC, SELFPAY ==
[2020-05-07 08:43] LABS: HCT 40.9 % (36.0-46.0); HGB 13.4 g/dL (11.2-15.7); MCH 29.6 pg (27.0-33.0); MCHC 32.8 % (32.0-36.0); MCV 90.5 fL (80-95); Platelet Count 240 10^3/uL (130-400); RBC 4.52 10^6/uL (3.93-5.22); RDW 13.1 % (11.7-14.6); RDW-SD 43.1 fL; WBC 5.95 10^3/uL (4.4-10.8)
[2020-05-07 09:45] LABS: ALT 17 U/L (14-59); AST 14 U/L (15-37); Albumin 3.9 g/dL (3.4-5.0); Alkaline Phosphatase 65 U/L (46-116); Anion Gap 4.9 mmol/L (3-11); BUN 25 mg/dL (7-18); Bilirubin, Total 0.6 mg/dL (0.2-1.0); CO2 28.1 mmol/L (21.0-32.0); CREATININE 0.68 mg/dL (0.55-1.02); Calcium 9.4 mg/dL (8.5-10.1); Calculated LDL 102 mg/dL (<100); Chloride 103 mmol/L (98-107); Cholesterol 182 mg/dL (<200); Glucose 136 mg/dL (74-106); HDL Cholesterol 60 mg/dL (40-60); Potassium 4.1 mmol/L (3.5-5.1); Sodium 136 mmol/L (136-145); Total Protein 6.4 g/dL (6.4-8.2); Triglyceride 104 mg/dL (<150)
== END 2020-05-07 03:00 ==
PROVIDERS: PCP Nurse Practitioner; Visit Provider Nurse Practitioner
DX: E78.5 Hyperlipidemia, unspecified (principal); I10 Essential (primary) hypertension; E11.9 Type 2 diabetes mellitus without complications
CPT/HCPCS: 36415; 80053; 80061; 85027

== ENCOUNTER 2020-10-28 08:11 | Outpatient (CLI) | payer MEDICARE, BC, SELFPAY ==
--- NOTE | 2020-10-28 08:00 | DI.RAD_ITS ---
Exam(s) XR WRIST LT COMPLETE EXAM: XR WRIST LT COMPLETE CLINICAL HISTORY: trauma 2w ago; swoll red dist ulna; r/o fracture M25.539 PAIN LT WRIST. TECHNIQUE: 2D digital imaging was performed. COMPARISON: No exams were available for comparison FINDINGS: Three views of the left wrist reveal no fractures distal radius and ulna and no significant ulnar afshin iance. No obvious scaphoid fracture. However, on the lateral view there is an osteophytic density s een dorsally measuring 5 x 4 millimeters. This may be a fracture fragment such as triquetrum. Also noted is degenerative change at the articulation between the thumb metacarpal and trapezium. IMPRESSION: DATA REPOSITORY: RADIATION DOSE DELIVERED:
== END 2020-10-28 08:31 ==
PROVIDERS: PCP Nurse Practitioner; Visit Provider Nurse Practitioner Adult Health
DX: M25.532 Pain in left wrist (principal)
CPT/HCPCS: 73110

== ENCOUNTER 2021-06-16 02:34 | Outpatient (CLI) | payer MEDICARE, BC, SELFPAY ==
[2021-06-16 09:00] LABS: HCT 40.8 % (36.0-46.0); HGB 13.1 g/dL (11.2-15.7); MCH 28.7 pg (27.0-33.0); MCHC 32.1 % (32.0-36.0); MCV 89.5 fL (80-95); MPV 9.2 fL (8.0-11.0); Platelet Count 273 10^3/uL (130-400); RBC 4.56 10^6/uL (3.93-5.22); RDW 13.1 % (11.7-14.6); RDW-SD 42.9 fL; WBC 6.54 10^3/uL (4.4-10.8)
[2021-06-16 09:43] LABS: Hemoglobin A1C 7.7 % (<5.7)
[2021-06-16 09:45] LABS: ALT 16 U/L (14-59); AST 12 U/L (15-37); Albumin 3.7 g/dL (3.4-5.0); Alkaline Phosphatase 95 U/L (46-116); Anion Gap 8.9 mmol/L (3-11); BUN 19 mg/dL (7-18); Bilirubin, Total 0.3 mg/dL (0.2-1.0); CO2 29.1 mmol/L (21.0-32.0); CREATININE 0.6 mg/dL (0.55-1.02); Calcium 9.3 mg/dL (8.5-10.1); Calculated LDL 104 mg/dL (<100); Chloride 104 mmol/L (98-107); Cholesterol 190 mg/dL (<200); Glucose 197 mg/dL (74-106); HDL Cholesterol 53 mg/dL (40-60); Potassium 4.4 mmol/L (3.5-5.1); Sodium 142 mmol/L (136-145); Total Protein 6.3 g/dL (6.4-8.2); Triglyceride 168 mg/dL (<150)
== END 2021-06-16 02:35 | disposition home or self-care (01) ==
PROVIDERS: PCP Nurse Practitioner; Visit Provider Nurse Practitioner
DX: E11.9 Type 2 diabetes mellitus without complications (principal); E78.5 Hyperlipidemia, unspecified; I10 Essential (primary) hypertension; J31.0 Chronic rhinitis
CPT/HCPCS: 36415; 80053; 80061; 85027; 83036

== ENCOUNTER 2021-09-02 01:27 | Outpatient (CLI) | payer MEDICARE, BC, SELFPAY ==
--- NOTE | 2021-09-02 06:30 | DI.DEXA_ITS ---
Exam(s) XR DEXA BONE DENSITY W/WO LILI EXAM: XR DEXA BONE DENSITY W/WO LILI CLINICAL HISTORY: screening for osteoporosis in postmenopausal woman,z78.0 TECHNIQUE: Routine DEXA evaluation of the lumbar spine, hip, or forearm. COMPARISON: Compared to prior DEXA scan of January 2015 FINDINGS: Performed on a [email or web address] unit. Lateral image: No compression fracture evident. Lumbar Spine total T-score: -0.6. Reading in 2015 was 0.1 Hip total T-score:-1.6. Prior reading in 2014 was -0.8. Independent reading at the level of the femoral neck yields at T-score of -2.0. Forearm total T-score: -1.4 IMPRESSION: Bone mineral density measures in the osteopenia range. Fracture risk is moderate. Note: Any spine fracture indicates 5x risk for subsequent spine fracture and 2x risk for subsequent h ip fracture. World Health Organization criteria for BMD interpretation classify patients: Normal...... T- Score at or above -1.0 Osteopenic... T- Score between -1.0 and -2.5 Osteoporosis... T-Score at or below -2.5
--- NOTE | 2021-09-02 09:19 | DI.MAMMO_ITS ---
Exam(s) MAMMO SCREENING EXAM: MAMMO SCREENING CLINICAL HISTORY: screening,z12.39. TECHNIQUE: Bilateral full field digital CC and MLO mammographic images were obtained with 3D tomosyn thesis and utilizing computer aided detection (CAD). COMPARISON: Prior mammograms were reviewed, the most recent being September 2019. FINDINGS: No CAD designations. There are no new spiculated masses nor malignant appearing microcalcification groups. There is no significant architectural distortion nor skin thickening-retraction. IMPRESSION: No radiographic evidence of malignancy. BI-RADS Category 1 - Negative Breast Density - Category B - Scattered areas of fibroglandular density Breast density Category C or D implies that the patient has dense breast tissue. Dense breast tissue can make it harder to find cancer on a mammogram. Dense breast tissue is also associated with an incr eased risk of breast cancer. This information about the result of the mammogram report was provided to the patient to raise their awareness. Use this report when you speak with the patient about their risks for breast cancer, which includes their family history. At that time, you may recommend additional screening tests (Ultrasoun d or MRI) as these tests may add significant information. A negative radiographic report should not delay biopsy if a dominant or clinically suspicious mass is present. Up to ten percent of cancers are not identified on mammography. A negative report may reinforce clinical impression. Adenosis and dense breasts may obscure an underlying neoplasm. False positive reports average 6 to 10%. Patient will receive a letter notifying them of these results.
== END 2021-09-02 01:47 ==
PROVIDERS: PCP Nurse Practitioner; Visit Provider Nurse Practitioner
DX: Z12.31 Encounter for screening mammogram for malignant neoplasm of breast (principal); M85.88 Other specified disorders of bone density and structure, other site; Z78.0 Asymptomatic menopausal state
CPT/HCPCS: 77063; 77067; 77080

== ENCOUNTER → 2021-12-12 01:10 | Outpatient (CLI) | payer MEDICARE, BC, SELFPAY ==
--- NOTE | 2021-12-12 07:45 | DI.US_ITS ---
Exam(s) US CAROTID EXAM: US CAROTID CLINICAL HISTORY: episodes black vision seconds, lightheaded,family h/o carotid stenosis,r42,. TECHNIQUE: Ultrasound carotids performed using grayscale, color-flow, and spectral Doppler imaging. COMPARISON: US US OR ANESTHESIA from 05/21/2019 FINDINGS: CAROTID ARTERIES: There is only mild plaque noted bilaterally at the level the carotid bulbs and prox imal internal carotid arteries. There are no elevated velocities. This implies less than 40 percent stenosis. VERTEBRAL ARTERIES: Antegrade flow demonstrated in both vertebral arteries in the neck. Measurements: R Bulb: 58.2cm/s PS / 18cm/s ED R CCA: 72.4cm/s PS / 18cm/s ED R ECA: 116.2cm/s PS / 16.2cm/s ED R ICA Prox: 56.9cm/s PS / 18cm/s ED R ICA Mid: 76.3cm/s PS / 24.5cm/s ED R ICA Distal: 76.3cm/s PS /28.4cm/s ED R Vert: 53.4cm/s PS / 14cm/s ED R SVR: 1.1 R DVR: 1.4 L Bulb: 59.7cm/s PS / 19cm/s ED L CCA: 73.1cm/s PS / 17.9cm/s ED L ECA: 89cm/s PS / 12.9cm/s ED L ICA Prox: 71.6cm/s PS / 20.2cm/s ED L ICA Mid: 90.8cm/s PS / 29.8cm/s ED L ICA Distal: 61.8cm/s PS / 20.1cm/s ED L Vert: 59.1cm/s PS / 11.7cm/s ED L SVR:1.2 L DVR:1.7 IMPRESSION: No evidence for hemodynamically significant carotid stenosis. Antegrade flow in both vertebral arteries. Criteria for Carotid Stenosis: Normal: ICA PSV <125 cm/s no plaque or intimal thickening is visible. <50% stenosis: ICA PSV <125 cm/s and plaque or intimal thickening is visible. 50-69% stenosis: ICA PSV is 125-250 cm/s and plaque is visible. >70% stenosis to near occlusion: ICA PSV >250 cm/s with visible plaque and luminal narrowing. DATA REPOSITORY:
== END ==
PROVIDERS: PCP Nurse Practitioner; Visit Provider Nurse Practitioner
DX: R42 Dizziness and giddiness (principal); H53.8 Other visual disturbances; Z82.49 Family history of ischemic heart disease and other diseases of the circulatory system
CPT/HCPCS: 93880

== ENCOUNTER 2022-01-20 12:02 | Outpatient (REF) | payer MEDICARE, BC, SELFPAY ==
[2022-01-23 11:58] LABS: COVID-19 RT-PCR UVMMC Result Negative (Negative)
== END 2022-01-20 12:03 | disposition home or self-care (01) ==
LOC: LBN 12:02
PROVIDERS: Student in an Organized Health Care Education/Training Program; PCP Nurse Practitioner; Visit Provider Nurse Practitioner Adult Health
DX: Z20.822 Contact with and (suspected) exposure to COVID-19 (principal)
CPT/HCPCS: U0003

== ENCOUNTER 2022-10-30 03:00 | Outpatient (CLI) | payer MEDICARE, BC, SELFPAY ==
[2022-10-30 08:31] LABS: ALT 13 U/L (14-59); AST 13 U/L (15-37); Albumin 3.5 g/dL (3.4-5.0); Alkaline Phosphatase 84 U/L (46-116); Anion Gap 8.8 mmol/L (3-11); BUN 19 mg/dL (7-18); Bilirubin, Total 0.4 mg/dL (0.2-1.0); CO2 28.2 mmol/L (21.0-32.0); CREATININE 0.8 mg/dL (0.55-1.02); Calcium 9.1 mg/dL (8.5-10.1); Calculated LDL 81 mg/dL (<100); Chloride 105 mmol/L (98-107); Cholesterol 160 mg/dL (<200); Estimated GFR 77.75 (mL/min/1.73m2); Glucose 203 mg/dL (74-106); HDL Cholesterol 45 mg/dL (40-60); Potassium 3.8 mmol/L (3.5-5.1); Sodium 142 mmol/L (136-145); Total Protein 6.6 g/dL (6.4-8.2); Triglyceride 171 mg/dL (<150)
== END 2022-10-30 03:01 | disposition home or self-care (01) ==
LOC: LBO 03:00
PROVIDERS: PCP Nurse Practitioner; Visit Provider Nurse Practitioner
DX: E11.9 Type 2 diabetes mellitus without complications (principal); E78.5 Hyperlipidemia, unspecified; I10 Essential (primary) hypertension
CPT/HCPCS: 36415; 80053; 80061

== ENCOUNTER 2022-11-20 03:06 | Outpatient (CLI) | payer MEDICARE, BC, SELFPAY ==
--- NOTE | 2022-11-20 07:00 | DI.MAMMO_ITS ---
Exam(s) MAMMO SCREENING EXAM: MAMMO SCREENING CLINICAL HISTORY: SCREENING, Z12.39 TECHNIQUE: Bilateral full field digital CC and MLO mammographic images were obtained with 3D tomosyn thesis and utilizing computer aided detection (CAD). COMPARISON: Available for comparison. FINDINGS: Masses/Architectural Distortion: None seen. Microcalcifications: No suspicious pleomorphic-type are seen. Skin Thickening/Nipple Retraction: None. IMPRESSION: 1. No significant interval change with no specific features of malignancy noted. 2. Unless there is more urgent need, screening mammography is recommended, as per [employer] guidelines. BI-RADS Category 1 - Negative Breast Density - Category B - Scattered areas of fibroglandular density Breast density category C or D implies that the patient has dense breast tissue. Dense breast tissue is very common and is not abnormal but dense breast tissue can make it harder to find cancer on a ma mmogram. Also, dense breast tissue may increase their breast cancer risk. This information about the result of the mammogram report was provided to the patient to raise their awareness. Use this report when you speak with the patient about their risks for breast cancer, which includes their family hist ory. At that time, you may recommend for more screening tests (Ultrasound or MRI) as they might be us eful based on their risk. A negative radiographic report should not delay biopsy if a dominant or clinically suspicious mass is present. Up to ten percent of cancers are not identified on mammography. A negative report may reinforce clinical impression. Adenosis and dense breasts may obscure an underlying neoplasm. False positive reports average 6 to 10%. Patient will receive a letter notifying them of these results.
== END 2022-11-20 03:26 ==
LOC: DI 03:07
PROVIDERS: PCP Nurse Practitioner; Visit Provider Nurse Practitioner
DX: Z12.31 Encounter for screening mammogram for malignant neoplasm of breast (principal)
CPT/HCPCS: 77063; 77067

== ENCOUNTER 2023-11-22 02:38 | Outpatient (CLI) | payer MEDICARE, BC, SELFPAY ==
[2023-11-22 11:08] LABS: ALT 16 U/L (14-59); AST 11 U/L (15-37); Albumin 3.5 g/dL (3.4-5.0); Alkaline Phosphatase 88 U/L (46-116); Anion Gap 8.1 mmol/L (3-11); BUN 17 mg/dL (7-18); Bilirubin, Total 0.56 mg/dL (0.2-1.0); CO2 29.9 mmol/L (21.0-32.0); CREATININE 0.7 mg/dL (0.55-1.02); Calcium 9.6 mg/dL (8.5-10.1); Calculated LDL 88 mg/dL (<100); Chloride 101 mmol/L (98-107); Cholesterol 157 mg/dL (<200); Glucose 184 mg/dL (74-106); HDL Cholesterol 52 mg/dL (40-60); Potassium 4.4 mmol/L (3.5-5.1); Sodium 139 mmol/L (136-145); Total Protein 6.5 g/dL (6.4-8.2); Triglyceride 85 mg/dL (<150)
[2023-11-22 11:19] LABS: Lipase 22 U/L (16-77)
== END 2023-11-22 02:39 | disposition home or self-care (01) ==
LOC: LBO 02:38
PROVIDERS: PCP Nurse Practitioner; Referring Provider Nurse Practitioner; Visit Provider Nurse Practitioner
DX: E11.9 Type 2 diabetes mellitus without complications (principal); I10 Essential (primary) hypertension; E78.5 Hyperlipidemia, unspecified
CPT/HCPCS: 36415; 80053; 80061; 83690; 83036

== ENCOUNTER 2024-10-01 00:59 | Outpatient (CLI) | payer MEDICARE, BC, SELFPAY ==
--- NOTE | 2024-10-01 07:15 | DI.DEXA_ITS ---
Exam(s) XR DEXA BONE DENSITY W/WO LILI EXAM: XR DEXA BONE DENSITY W/WO LILI CLINICAL HISTORY: osteopenia,screening for osteoporosis in postmenopausal state,z78.0 TECHNIQUE: COMPARISON: CR XR DEXA BONE DENSITY W/WO LILI from 09/02/2021 FINDINGS: Lateral Spine Image: Unremarkable. No compression deformities identified. Left hip: Total T-Score: -1.4. This compares to -1.6 on the prior examination. Total Z-Score: 0.4 T- and Z-scores: Findings are consistent with osteopenia. Lumbar Spine: Total T-Score: -0.2. Compares to -0.6 on the prior examination. Total Z-Score: 2.2 T- and Z-scores: Within normal limits. IMPRESSION: No evidence of osteoporosis.
== END 2024-10-01 01:19 ==
LOC: DI 00:59
PROVIDERS: PCP Nurse Practitioner; Visit Provider Family Medicine
DX: Z78.0 Asymptomatic menopausal state (principal); Z13.820 Encounter for screening for osteoporosis
CPT/HCPCS: 77080

== ENCOUNTER 2024-10-21 02:56 | Outpatient (CLI) | payer MEDICARE, BC, SELFPAY ==
[2024-10-21 08:06] LABS: Bilirubin Negative (Negative); Blood Trace-intact (Negative); Clarity Sl Cloudy (Clear); Glucose Negative (Negative); Ketones Trace mg/dL (Negative); Leukocyte Esterase Moderate (Negative); Nitrite Negative (Negative); Specific Gravity 1.025 (1.005-1.025); Urobilinogen 0.2 mg/dL (Up to 0.2)
[2024-10-21 08:13] LABS: Abs Immature Grans 0.01 10^3/uL (0.0-0.06); Absolute Basophil Count 0.04 10^3/uL (0.0-0.2); Absolute Eosinophil Count 0.27 10^3/uL (0.0-0.7); Absolute Lymphocyte Count 2.12 10^3/uL (1.2-3.4); Absolute Monocyte Count 0.56 10^3/uL (0.1-0.8); Absolute Neutrophil Count 3.35 10^3/uL (1.2-6.7); Basophils % 0.6 %; Eosinophils % 4.3 %; Immature Grans % 0.2 %; Lymphocytes % 33.4 %; MCH 29.5 pg (27.0-33.0); MCHC 33.3 % (32.0-36.0); MCV 89 fL (80-95); MPV 8.8 fL (8.0-11.0); Monocytes % 8.8 %; Neutrophils % 52.7 %; Platelet Count 267 10^3/uL (130-400); RDW 13.4 % (11.7-14.6); RDW-SD 43.8 fL; WBC 6.35 10^3/uL (4.4-10.8)
[2024-10-21 08:19] LABS: Epithelial Cells Few HPF (Negative); RBC 0-2 HPF (0-2)
[2024-10-21 08:20] LABS: Bacteria Few HPF (Negative); C & S Indicated? No; Casts Negative LPF (Negative); Crystals Negative HPF (Negative); Mucus Negative (Negative)
[2024-10-21 08:54] LABS: Anion Gap 5.5 mmol/L (3-11); BUN 15 mg/dL (7-18); CO2 31.5 mmol/L (21.0-32.0); CREATININE 0.7 mg/dL (0.55-1.02); Calcium 9.2 mg/dL (8.5-10.1); Calculated LDL 68 mg/dL (<100); Chloride 101 mmol/L (98-107); Cholesterol 140 mg/dL (<200); Estimated GFR 90.14 (mL/min/1.73m2); Glucose 164 mg/dL (74-106); HDL Cholesterol 45 mg/dL (>or=50); Sodium 138 mmol/L (136-145); TSH 1.38 uIU/mL (0.36-3.74); Triglyceride 135 mg/dL (<150); Vitamin D 25 Total 71 ng/mL (30-100)
== END 2024-10-21 02:57 | disposition home or self-care (01) ==
LOC: LBO 02:57
PROVIDERS: PCP Nurse Practitioner; Referring Provider Family Medicine; Visit Provider Family Medicine
DX: E78.5 Hyperlipidemia, unspecified (principal); Z13.9 Encounter for screening, unspecified; E11.9 Type 2 diabetes mellitus without complications; M81.0 Age-related osteoporosis without current pathological fracture; R30.0 Dysuria; D64.9 Anemia, unspecified
CPT/HCPCS: 36415; 80048; 80061; 82306; 81003; 81015; 84443; 85025

== ENCOUNTER 2025-02-26 09:52 | Outpatient (CLI) | payer MEDICARE, BC, SELFPAY ==
--- NOTE | 2025-02-26 09:45 | RT.EKG_ITS ---
APPROVED REPORT Exam: Resting ECG Reason for Exam: Pre-operative examination Patient Location: O HR:81 bpm ECG Measurements Heart Rate 81 AXIS WV 153 P 49 QRSd 90 QRS 8 QT 374 T 32 QTc 434 Conclusion Sinus rhythm...normal P axis, V-rate 50- 99 Ventricular premature complex...V complex w/ short R-R interval Left ventricular hypertrophy...multiple voltage criteria
== END 2025-02-26 09:53 | disposition home or self-care (01) ==
LOC: DI.KIM 09:53
DX: Z01.818 Encounter for other preprocedural examination (principal); I51.7 Cardiomegaly
CPT/HCPCS: 93010

== ENCOUNTER 2025-03-18 11:57 | Emergency (ER) | payer MEDICARE, BC, SELFPAY ==
[2025-03-18 12:11] VITALS: BP 160/91; PULSE 94; RESP 16; TEMP 37.3; O2SAT 97
[2025-03-18 12:33] LABS: Glucose Negative (Negative)
[2025-03-18 12:37] LABS: C & S Indicated? Yes; RBC >50 HPF (0-2)
--- NOTE | 2025-03-18 13:00 | DI.CT_ITS ---
Exam(s) CT ABDOMEN PELVIS WO EXAM: CT ABDOMEN PELVIS WO CLINICAL HISTORY: hx of stones, now left flank pain. TECHNIQUE: Imaging Protocol: Axial computed tomography images with coronal and sagittal reformatted images were created and reviewed. Oral: no COMPARISON: CT CT ABDOMEN PELVIS WO from 05/09/2019 FINDINGS: Lung Bases: No acute findings. Liver: Normal density. No suspicious mass. Gallbladder and biliary tract: Cholecystectomy. No biliary dilation. Pancreas: Normal density. No abnormal calcifications or inflammatory process. Spleen: Normal. Kidneys: Normal size, contour and axis. A 10 millimeter calculus is noted at the lower pole of the left kidney. There are 3 smaller stones also noted at the lower pole as well as a tiny stone near the upper pole of the left kidney. There is a tiny stone at the lower pole of the right kidney. No significant hydronephrosis. Stable small renal cysts. No suspicious masses are seen. Adrenal glands: No masses seen. Lymph nodes: Within normal limits. Vasculature: Abdominal aorta non-dilated. Soft tissues: Unremarkable. Bladder: There is a 4 millimeter stone noted at the posterior left wall of the bladder, just adjacent to the ureterovesical junction. No wall thickening. No mass. Bowel: No obstruction or bowel wall thickening. Mild diverticulosis. No evidence of diverticulitis. The appendix is normal. Peritoneal cavity: No ascites. No focal collection. No mesenteric inflammatory response. Reproductive organs: Uterine fibroids are again noted. Bones: Degenerative changes in the spine. Mild degenerative scoliosis. IMPRESSION: Bilateral nephrolithiasis, left greater than right. 4 millimeter stone adjacent to the left ureterovesical junction has just passed into the bladder. There is no significant left hydronephrosis. Findings called to the ER provider. RADIATION DOSE DELIVERED: Total DLP DATA REPOSITORY: All CT scans at this facility are submitted to the National Radiology Data Registry (NRDR) Dose Index Registry (DIR) with the [employer] (A[employer]). RADIATION OPTIMIZATION: All CT scans at this facility use at least one of these dose optimization techniques: automated exposure control; mA and/or kV adjustment per patient size (includes targeted exams where dose is matched to clinical indication); or iterative reconstruction.
[2025-03-18] MEDS: ACETAMINOPHEN 1,000 MG/100 ML BAG 400 MG IVPB (14:12)
[2025-03-18] MEDS: Ketorolac 15 MG/ML VIAL IVP (14:12)
[2025-03-18 14:22] LABS: Abs Immature Grans 0.06 10^3/uL (0.0-0.06); HCT 40.9 % (36.0-46.0); HGB 13.7 g/dL (11.2-15.7); Immature Grans % 0.4 %; MCH 29.1 pg (27.0-33.0); MCHC 33.5 % (32.0-36.0); MCV 87 fL (80-95); MPV 8.7 fL (8.0-11.0); Platelet Count 263 10^3/uL (130-400); RBC 4.70 10^6/uL (3.93-5.22); RDW 13.2 % (11.7-14.6); RDW-SD 42.5 fL; WBC 14.44 10^3/uL (4.4-10.8)
[2025-03-18 14:57] LABS: ALT 9 U/L (10-49); AST 15 U/L (<34); Albumin 4.6 g/dL (3.4-5.0); Alkaline Phosphatase 86 U/L (46-116); Anion Gap 9.7 mmol/L (3-11); BUN 17 mg/dL (9-23); Bilirubin, Total 0.70 mg/dL (0.2-1.2); CO2 29.3 mmol/L (20.0-31.0); Calcium 10.3 mg/dL (8.3-10.6); Chloride 102 mmol/L (98-107); Glucose 131 mg/dL (74-106); Potassium 3.9 mmol/L (3.5-5.1); Sodium 141 mmol/L (136-145); Total Protein 6.9 g/dL (5.7-8.2)
[2025-03-18 15:08] LABS: Procalcitonin < 0.10 ng/mL
[2025-03-18 15:38] VITALS: BP 160/91; PULSE 94; RESP 16; TEMP 37.3; O2SAT 97
--- NOTE | 2025-03-18 15:54 | W.ED.GENAD ---
Discharge Plan Disposition Patient Disposition: Home Condition: Good Discharge Details Clinical Impression: Kidney stone Primary Care Provider: Colton Dsouza ED Provider: Nirmal Lyman Home Meds and New Rx's Prescriptions: New cephalexin 500 mg capsule 500 mg PO QID 7 Days Qty: 28 0RF ketorolac 10 mg tablet 10 mg PO TID 5 Days Qty: 15 0RF No Action cholecalciferol (vitamin D3) 50 mcg (2,000 unit) capsule 50 mcg PO DAILY aspirin 81 mg tablet,delayed release (DR/EC) 81 mg PO DAILY (DME) blood sugar diagnostic Strip See Dose Instructions .ROUTE .MEDSUPPLY Qty: 100 3RF Dose Instruction: As directed Rx Instructions: test 1x daily prevagen 1 tab PO DAILY nystatin 100,000 unit/gram cream 1 applic topical TID Qty: 60 3RF ondansetron 8 mg tablet,disintegrating 8 mg PO Q8H PRN (Reason: nausea and vomiting) Qty: 30 0RF glipizide 2.5 mg tablet 2.5 mg PO DAILY Qty: 90 3RF Ozempic 0.25 mg or 0.5 mg (2 mg/3 mL) pen injector 0.5 mg subcut QWEEK Rx Instructions: Inject 0.25 mg subcutaneously once weekly as directed. multivitamin [Daily Multi-Vitamin] 1 EACH tablet 1 ea PO DAILY (DME) blood-glucose meter [Blood Glucose Monitoring] kit See Dose Instructions .ROUTE .MEDSUPPLY Qty: 1 0RF Dose Instruction: As directed Rx Instructions: As directed tolnaftate [Antifungal (tolnaftate)] 1 % solution 1 drp topical QHS Rx Instructions: rub into affected area (DME) FreeStyle Kimberly 3 Sensor Device See Rx Instructions .Route Qty: 6 3RF Rx Instructions: As directed (DME) FreeStyle Kimberly 3 Hardwick Misc See Rx Instructions .Route Qty: 1 0RF Rx Instructions: As directed enalapril maleate 10 mg tablet See Rx Instructions .ROUTE .COMPLEX Qty: 90 3RF Dose Instruction: TAKE ONE TABLET BY MOUTH EVERY DAY Rx Instructions: TAKE ONE TABLET BY MOUTH EVERY DAY omeprazole 20 mg capsule,delayed release(DR/EC) See Rx Instructions .ROUTE .COMPLEX Qty: 90 3RF Dose Instruction: TAKE ONE CAPSULE BY MOUTH EVERY DAY Rx Instructions: TAKE ONE CAPSULE BY MOUTH EVERY DAY triamcinolone acetonide 0.1 % cream 1 applic topical BID Patient Comments: 08/25/24 Dr Malloy Rx Instructions: to affected areas on R ankle, use for a week or two until clear, the DC. metformin 1,000 mg tablet See Rx Instructions .ROUTE .COMPLEX Qty: 120 0RF Dose Instruction: TAKE ONE TABLET BY MOUTH TWICE A DAY - MAX OF 2 IN 24 HOURS Rx Instructions: TAKE ONE TABLET BY MOUTH TWICE A DAY - MAX OF 2 IN 24 HOURS Discharge Instructions Instructions: Kidney stones in adults Additional Instructions: At this time you have evidence of a kidney stone that has thankfully passed. There is concern that there could be a trace component of infection in your urine as well. Out of an abundance of caution, we have started you on an antibiotic. Please take this as prescribed. Please follow-up closely with Dr. Herrera and his team. Please take Tylenol and the prescribed Toradol as needed for pain. Drink plenty of fluids and stay well-hydrated. If you notice any worsening of your symptoms, or any new symptoms such as vomiting, diarrhea, fever, chills, shortness of breath, chest pain, numbness, weakness, or fainting , please return immediately to the emergency department for reevaluation. Please follow up with your primary care provider as soon as possible for reassessment and reevaluation. As always, it was a pleasure participating in your medical care today. Stand Alone Forms: Portal Information Referrals: Edouard Herrera MD [ [facility] STAFF PHYSICIAN, Urology] Colton Dsouza APRN [Primary Care Provider, Family Practice] [facility] General Date/Time Provider Initiated Documentation: 03/18/25 12:18. HPI Narrative: This is a 74-year-old female with a past medical history of high cholesterol, type 2 diabetes, kidney stones, hypertension, cholecystectomy, presents today for evaluation of left-sided flank pain. Patient states that for the last 24 hours she has had left-sided flank pain. It has radiated down towards her left groin. She has had intermittent chills but no fever. She admits to vomiting. Pain is achy in nature. She denies any chest pain, hematemesis, but does admit to some mild blood in her urine. No other complaints at this time. No other modifying factors. Related Data Home Medications Medication Instructions Recorded Confirmed multivitamin (Daily Multi-Vitamin 1 ea PO DAILY 07/29/12 02/26/25 tablet) blood-glucose meter (Blood Glucose #1 ea 04/10/18 02/26/25 Monitoring kit) aspirin 81 mg tablet,delayed 81 mg PO DAILY 09/29/19 02/26/25 release blood sugar diagnostic #100 ea 10/13/21 02/26/25 cholecalciferol (vitamin D3) 50 50 mcg PO DAILY 05/09/23 02/26/25 mcg (2,000 unit) capsule nystatin 100,000 unit/gram topical 1 applic topical TID abdomen folds 03/10/24 02/26/25 cream #60 grams prevagen 1 tab PO DAILY 03/10/24 02/26/25 tolnaftate 1 % topical solution 1 drp topical QHS 03/11/24 02/26/25 (Antifungal (tolnaftate)) blood-glucose sensor (FreeStyle #6 ea 06/20/24 02/26/25 Kimberly 3 Sensor device) blood-glucose,sound effects technician,cont #1 ea 06/20/24 02/26/25 (FreeStyle Kimberly 3 Hardwick) enalapril maleate 10 mg tablet See Rx Instructions .Route 06/23/24 02/26/25 .COMPLEX #90 tabs omeprazole 20 mg capsule,delayed See Rx Instructions .Route 07/07/24 02/26/25 release .COMPLEX #90 caps triamcinolone acetonide 0.1 % 1 applic topical BID 08/27/24 02/26/25 topical cream glipizide 2.5 mg tablet 2.5 mg PO DAILY #90 tabs 10/23/24 02/26/25 ondansetron 8 mg disintegrating 8 mg PO Q8H PRN nausea and 10/23/24 02/26/25 tablet vomiting #30 tabs semaglutide 0.25 mg or 0.5 mg (2 0.5 mg subcut QWEEK 02/26/25 02/26/25 mg/3 mL) subcutaneous pen injector (Ozempic) metformin 1,000 mg tablet See Rx Instructions .Route 03/02/25 .COMPLEX #120 tabs cephalexin 500 mg capsule 500 mg PO QID 7 days #28 caps 03/18/25 ketorolac 10 mg tablet 10 mg PO TID 5 days #15 tabs 03/18/25 Previous Rx's Medication Instructions Recorded blood-glucose meter (Blood Glucose #1 ea 04/10/18 Monitoring kit) blood sugar diagnostic #100 ea 10/13/21 nystatin 100,000 unit/gram topical 1 applic topical TID abdomen folds 03/10/24 cream #60 grams blood-glucose sensor (FreeStyle #6 ea 06/20/24 Kimberly 3 Sensor device) blood-glucose,sound effects technician,cont #1 ea 06/20/24 (FreeStyle Kimberly 3 Hardwick) enalapril maleate 10 mg tablet See Rx Instructions .Route 06/23/24 .COMPLEX #90 tabs omeprazole 20 mg capsule,delayed See Rx Instructions .Route 07/07/24 release .COMPLEX #90 caps glipizide 2.5 mg tablet 2.5 mg PO DAILY #90 tabs 10/23/24 ondansetron 8 mg disintegrating 8 mg PO Q8H PRN nausea and 10/23/24 tablet vomiting #30 tabs metformin 1,000 mg tablet See Rx Instructions .Route 03/02/25 .COMPLEX #120 tabs cephalexin 500 mg capsule 500 mg PO QID 7 days #28 caps 03/18/25 ketorolac 10 mg tablet 10 mg PO TID 5 days #15 tabs 03/18/25 Allergies Allergy/AdvReac Type Severity Reaction Status Date / Time IV dye Allergy Severe spasm/tremo Uncoded 03/18/25 12:15 rs General Stated Complaint: FlankPain BRADY: 3 Exam Narrative Exam Narrative: 1.Const: Well-nourished, Well-developed, appearing stated age 2.Eyes: PERRL, no conjunctival injection, and symmetrical lids. 3.ENT: Atraumatic external nose and ears. Moist MM. Neck: Symmetric, trachea midline, No thyromegaly. 4.CVS: +S1/S2, Peripheral pulses 2+ and equal in all extremities. Brisk capillary refill in all extremities. 5.RESP: Unlabored respiratory effort. Clear to auscultation bilaterally. No wheezes rales or rhonchi 6.GI: Soft, Nontender/Nondistended, No hepatosplenomegaly. No guarding or rebound. Mild left-sided CVA tenderness. 7.MSK: Normocephalic/Atraumatic, Extremities w/o deformity or ttp No cyanosis or clubbing, Normal movement of all extremities 8.Skin: Warm, Dry. No rashes or lesions. 9.Neuro: photographic intelligence officer II-XII grossly intact. Sensation grossly intact, no focal neurologic deficits. 10.Psych: (AAO) x3. Appropriate mood and affect Course Vital Signs Vital signs: Vital Signs Temperature 37.3 C 03/18/25 12:11 Pulse 94 H 03/18/25 12:11 Respiratory Rate 16 03/18/25 12:11 Blood Pressure 160/91 H 03/18/25 12:11 Pulse Oximetry 97 03/18/25 12:11 Temperature 37.3 C 03/18/25 15:38 Temperature Source Tympanic 03/18/25 15:38 Pulse 94 H 03/18/25 15:38 Respiratory Rate 16 03/18/25 15:38 Blood Pressure 160/91 H 03/18/25 15:38 Pulse Oximetry 97 03/18/25 15:38 Lab/Test Results Lab/Test Results: 03/18/25 12:18 Urine - Reflex from Ua Urine Culture - Pending Laboratory Tests Range/Units 03/18/25 03/18/25 12:18 14:10 WBC (4.4-10.8) 10^3/uL 14.44 H RBC (3.93-5.22) 10^6/uL 4.70 Hgb (11.2-15.7) g/dL 13.7 Hct (36.0-46.0) % 40.9 MCV (80-95) fL 87 MCH (27.0-33.0) pg 29.1 MCHC (32.0-36.0) % 33.5 RDW (11.7-14.6) % 13.2 Plt Count (130-400) 10^3/uL 263 MPV (8.0-11.0) fL 8.7 Immature Gran % % 0.4 Neutrophils % % 82.4 Lymphocytes % % 11.6 Monocytes % % 5.1 Eosinophils % % 0.2 Basophils % % 0.3 Nucleated RBC % (0.0-0.3) % 0.0 Absolute Neutrophils (1.2-6.7) 10^3/uL 11.90 H Absolute Lymphocytes (1.2-3.4) 10^3/uL 1.68 Absolute Monocytes (0.1-0.8) 10^3/uL 0.74 Absolute Eosinophils (0.0-0.7) 10^3/uL 0.03 Absolute Basophils (0.0-0.2) 10^3/uL 0.04 VBG Lactate (<or=2.0) mmol/L 2.5 H* Sodium (136-145) mmol/L 141 Potassium (3.5-5.1) mmol/L 3.9 Chloride (98-107) mmol/L 102 Carbon Dioxide (20.0-31.0) mmol/L 29.3 Anion Gap (3-11) mmol/L 9.7 BUN (9-23) mg/dL 17 Creatinine (0.55-1.02) mg/dL 0.6 Est GFR (CKD-EPI 2020) (mL/min/1.73m2) 99.03 Glucose (74-106) mg/dL 131 H Calcium (8.3-10.6) mg/dL 10.3 Total Bilirubin (0.2-1.2) mg/dL 0.70 AST (<34) U/L 15 ALT (10-49) U/L 9 L Alkaline Phosphatase (46-116) U/L 86 Total Protein (5.7-8.2) g/dL 6.9 Albumin (3.4-5.0) g/dL 4.6 Procalcitonin ng/mL < 0.10 Urine Color (Yellow) Red Urine Clarity (Clear) Cloudy Urine pH (5-8) 5.5 Ur Specific Thurman (1.005-1.025) >= 1.030 H Urine Protein (Neg-Trace) mg/dL >=300 H Urine Ketones (Negative) mg/dL 40 H Urine Blood (Negative) Large H Urine Nitrite (Negative) Negative Urine Bilirubin (Negative) Small H Urine Urobilinogen (Up to 0.2) mg/dL 0.2 Ur Leukocyte Esterase (Negative) Trace H Urine RBC (0-2) HPF >50 H Urine WBC (0-5) HPF 10-20 H Ur Epithelial Cells (Negative) HPF Rare Urine Crystals (Negative) HPF Negative Urine Bacteria (Negative) HPF Moderate Urine Casts (Negative) LPF Negative Urine Mucus (Negative) Trace Ur Culture Indicated? Yes Urine Glucose (Negative) mg/dL Negative Medical Decision Making This is a 74-year-old female with a past medical history of high cholesterol, type 2 diabetes, kidney stones, hypertension, cholecystectomy, presents today for evaluation of left-sided flank pain. Patient states that for the last 24 hours she has had left-sided flank pain. It has radiated down towards her left groin. She has had intermittent chills but no fever. She admits to vomiting. Pain is achy in nature. She denies any chest pain, hematemesis, but does admit to some mild blood in her urine. No other complaints at this time. No other modifying factors. Exam demonstrates a well-appearing female, mild left-sided CVA tenderness. No fever. Heart rate 94. Differential includes urolithiasis, UTI, diverticulitis. Will get CT imaging, treat her pain, get a UA, gently rehydrate, monitor closely and reassess. 4:09 PM Laboratory workup has returned, mild white count of 14, but no bandemia. Electrolytes normal, renal function normal, procalcitonin less than 0.1. Urinalysis shows large blood, very small amount of WBCs, and only trace leuk esterase. CT scan shows bilateral large kidney stones, however she also has a 4 mm stone adjacent to the left ureterovesicular junction that has just passed into the bladder. No significant hydronephrosis. No other significant abnormalities otherwise. On reassessment the patient's flank to groin pain has notably improved/resolved. She has a very small amount of left-sided flank/back pain, but this is otherwise well-controlled. Although she has no fever, or evidence of severe infection, out of an abundance of caution we will treat her with 2 g of ceftriaxone for potential UTI as well as Keflex for outpatient. Will give her stone strainer for collection, recommend close follow-up with her urologist Dr. Herrera. Patient's pain is otherwise well-controlled at this time. Will recommend continued NSAIDs and Keflex for home. No need for prolonged course of Flomax as the stone has passed on CT imaging. Patient will be discharged home. Discussed red flags which to return. I have extensively reviewed the treatment plan and discharge instructions with the patient and their family. I have addressed all patient concerns at this time. The patient and family was made aware of what symptoms to monitor for that would warrant a return to the emergency department. Discussed the plan with the patient and family, they demonstrate verbal understanding and agreement with our assessment and plan at this time. The documentation in this chart was dictated using [facility] dictation software. Please excuse any dictation errors. FINDINGS: Lung Bases: No acute findings. Liver: Normal density. No suspicious mass. Gallbladder and biliary tract: Cholecystectomy. No biliary dilation. Pancreas: Normal density. No abnormal calcifications or inflammatory process. Spleen: Normal. Kidneys: Normal size, contour and axis. A 10 millimeter calculus is noted at the lower pole of the left kidney. There are 3 smaller stones also noted at the lower pole as well as a tiny stone near the upper pole of the left kidney. There is a tiny stone at the lower pole of the right kidney. No significant hydronephrosis. Stable small renal cysts. No suspicious masses are seen. Adrenal glands: No masses seen. Lymph nodes: Within normal limits. Vasculature: Abdominal aorta non-dilated. Soft tissues: Unremarkable. Bladder: There is a 4 millimeter stone noted at the posterior left wall of the bladder, just adjacent to the ureterovesical junction. No wall thickening. No mass. Bowel: No obstruction or bowel wall thickening. Mild diverticulosis. No evidence of diverticulitis. The appendix is normal. Peritoneal cavity: No ascites. No focal collection. No mesenteric inflammatory response. Reproductive organs: Uterine fibroids are again noted. Bones: Degenerative changes in the spine. Mild degenerative scoliosis. IMPRESSION: Bilateral nephrolithiasis, left greater than right. 4 millimeter stone adjacent to the left ureterovesical junction has just passed into the bladder. There is no significant left hydronephrosis. Findings called to the ER provider. PFSH All Active Problems (Updated 03/18/25 @ 15:55 by Nirmal Lyman DO) Kidney stone (Chronic) Left ear hearing loss (Acute) Prominent ear deformity (Acute) 11/14/24 [facility] [place] Osteoporosis (Chronic) Spongiotic dermatitis (Acute ~07/2024) 08/25/24 Dr Malloy Seborrheic keratosis (Acute ~07/2024) 08/25/24 Dr Malloy Actinic keratoses (Acute ~07/2024) 08/25/24 Dr Malloy Fracture of triquetrum of left wrist (Acute) Encounter for screening laboratory testing for COVID-19 virus (Acute) Chest pain (Acute) History of total left knee replacement (TKR) (Acute 05/21/19) Chronic rhinitis (Acute 06/27/11) Diabetes mellitus type 2, controlled, without complications (Acute 08/02/12) A1C goal 7 Eczema (Acute 07/01/15) dx by Dr Malloy Essential hypertension (Acute 01/23/13) Hyperlipidemia (Acute 06/27/11) PCEq 15.8%; declines statin Low back pain (Acute 02/05/14) Mild airflow obstruction on pulmonary function test (Acute 12/06/17) PFT's [facility] 12/05/17 mild airflow obstruction no significant improvement with inhaled broncholdilators RH Osteoarthrosis (Acute 06/27/11) Osteoarthrosis-multiple sites (Acute 06/27/11) Spinal stenosis of lumbosacral region (Acute 02/25/14) Diverticulosis (Acute 10/12/15) Anorgasmia (Acute) Heartburn (Acute) Food sticks on swallowing (Acute) Early satiety (Acute) Dysphagia (Acute) Medical History (Updated 03/18/25 @ 15:55 by Nirmal Lyman, ) Actinic keratosis 08/10/22 annual skin check with Dr Malloy, LN x 2 to facial sites History of squamous cell carcinoma of skin 08/08/21 [facility] [place] Derm note 08/10/22 Yearly skin check with Dr Malloy Sarcoidosis of lung History of diverticulosis Hyperlipemia Eczema DM type 2 (diabetes mellitus, type 2) Essential hypertension Chronic rhinitis Spinal stenosis of lumbosacral region Low back pain Surgical History H/O esophagogastroduodenoscopy (~03/2019) History of lung biopsy SARCOIDOSIS Hx of colonoscopy Status post total knee replacement (07/05/07) Dr. Tovar Tubal Ligation, 1979 Cholecystectomy Family History Mother No problems noted. Father Diabetes Sister No problems noted. Sister No problems noted. Sister No problems noted. Brother No problems noted. Brother No problems noted. family history Diabetes Personal history of malignant neoplasm maternal aunt-breast Hyperlipidemia Social History (Updated 11/26/23 @ 18:01 by Karine Parish LPN) Smoking/Tobacco Use Status: Never Smoking risk assessment performed?: Yes Alcohol Intake: current Alcohol Intake frequency: holidays/special occasions only Alcohol type: wine and hard liquor Drug use: Never Substance use type: does not use Details: alcohol: last used [place] Household members: none Communication Needs: Corrective Lenses Do you need help understanding health information?: Rarely Current gender identity: female What is your relationship status?: Panel score (0-1 are the most socially isolated patients): 0 What type of physical activity do you participate in: none Working smoke detector in home: Yes Carbon monox detector in home: Yes Do you feel safe at home: Yes Do you feel safe in your relationship?: Yes
[2025-03-18] MEDS: Tamsulosin 0.4 MG CAPCR PO (15:55)
[2025-03-18] MEDS: cefTRIAXone 2 GM/50 ML BAG IVPB (15:55)
== END 2025-03-18 16:28 | disposition home or self-care (01) ==
PROVIDERS: Emergency Provider Student in an Organized Health Care Education/Training Program
DX: N20.0 Calculus of kidney (principal); E11.9 Type 2 diabetes mellitus without complications; E78.5 Hyperlipidemia, unspecified; I10 Essential (primary) hypertension; Z79.82 Long term (current) use of aspirin; Z79.84 Long term (current) use of oral hypoglycemic drugs; Z79.85 Long-term (current) use of injectable non-insulin antidiabetic drugs
CPT/HCPCS: 80053; 84145; 96365; 96375; 99285; 74176; 81003; 81015; 83605; 85025; 87086; 99284; J0131; J0696; J1885